=== PATIENT | female | born 1965 | race Caucasian/White ===

== ENCOUNTER 2020-08-12 13:50 | Outpatient (REF) | payer MEDICAID, SELFPAY ==
[2020-08-12 14:31] LABS: Basophils Percent Auto 1.2 % (0-2); Eosinophils Absolute Auto 0.3 X10*3/uL (0.0-0.4); Eosinophils Percent Auto 8.8 % (0-4); Hematocrit 34.2 % (37-47); Imm Gran Abs Auto 0.02 X10*3/uL (0.00-0.03); Imm Gran Pct Auto 0.6 % (0.0-0.4); Lymphocytes Absolute Auto 0.6 X10*3/uL (1.2-4.9); Lymphocytes Percent Auto 17.6 % (20-40); MANUAL DIFF FLAG SCAN; Mean Corpuscular HGB Conc 32.2 g/dl (31.0-35.0); Mean Corpuscular Hemoglobin 32.9 pg (27.0-33.0); Mean Corpuscular Volume 102.4 fL (80-98); Mean Platelet Volume 10.7 fL (9.4-12.3); Monocytes Absolute Auto 0.3 X10*3/uL (0.1-1.2); Monocytes Percent Auto 8.8 % (2-11); Neutrophils Absolute Auto 2.2 X10*3/uL (2.0-8.3); Red Blood Count 3.34 X10*6/uL (4.20-5.50); Red Cell Distribution Width 15.9 % (11.0-16.0); SCAN SMEAR FLAG 1; White Blood Count 3.4 X10*3/uL (4.8-10.8)
[2020-08-12 14:34] LABS: Platelet Count 36 X10*3/uL (160-400)
[2020-08-12 14:41] LABS: INTERNATIONAL NORM RATIO 1.3 (0.9-1.1)
[2020-08-12 15:04] LABS: Alanine Aminotransferase 25 U/L (0-31); Albumin Level 2.9 g/dL (3.5-5.0); Alkaline Phosphatase 70 U/L (39-117); Anion Gap 10 (12-20); Aspartate Amino Transferase 22 U/L (5-31); Bilirubin Direct 0.7 mg/dL (0.0-0.5); Bilirubin Total 1.7 mg/dL (0.0-1.0); Blood Urea Nitrogen 21 mg/dL (9-16); Carbon Dioxide 24 mmol/L (22-29); Chloride 110 mmol/L (96-108); Estimated Glomerular Filt Rate 48; Glucose Random 118 mg/dL (60-115); Potassium 4.7 mmol/l (3.3-5.1); Sodium 139 mmol/L (135-145)
[2020-08-12 15:14] LABS: SLIDE REVIEW VERIFIED
[2020-08-12 15:18] LABS: Ammonia 66 umol/L (13-55)
[2020-12-31 11:28] LABS: HCV Log PCR <1.18 NOT DETECTED; HepC Viral Load <15 NOT DETECTED
== END 2020-08-12 13:51 | disposition home or self-care (01) ==
LOC: HO.LAB 13:50
PROVIDERS: PCP Family Medicine; Visit Provider Internal Medicine
DX: B18.2 Chronic viral hepatitis C (principal); K74.69 Other cirrhosis of liver; R18.8 Other ascites; K72.90 Hepatic failure, unspecified without coma
CPT/HCPCS: 36415; 80051; 80076; 82140; 82565; 82947; 84520; 85025; 85610; 87522

== ENCOUNTER → 2020-08-18 13:41 | Outpatient (BNVA) | payer MEDICAID, SELFPAY | PROVIDERS: PCP Family Medicine; Referring Provider Family Medicine; Visit Provider Nurse Practitioner Gerontology | DX: E11.65 Type 2 diabetes mellitus with hyperglycemia (principal); E11.22 Type 2 diabetes mellitus with diabetic chronic kidney disease; I12.9 Hypertensive chronic kidney disease with stage 1 through stage 4 chronic kidney disease, or unspecified chronic kidney disease; N18.30 Chronic kidney disease, stage 3 unspecified; E78.5 Hyperlipidemia, unspecified; Z79.4 Long term (current) use of insulin | CPT/HCPCS: 82947; 99213 ==

== ENCOUNTER → 2020-09-04 14:30 | Outpatient (BNVA) | payer MEDICAID, SELFPAY | PROVIDERS: PCP Family Medicine; Referring Provider Family Medicine; Visit Provider Dietitian, Registered | DX: Z76.89 Persons encountering health services in other specified circumstances (principal) ==

== ENCOUNTER 2020-09-10 16:10 | Outpatient (REF) | payer MEDICAID, SELFPAY ==
[2020-09-10 17:13] LABS: Eosinophils Absolute Auto 0.2 X10*3/uL (0.0-0.4); Hematocrit 30.3 % (37-47); Hemoglobin 9.9 g/dl (12.0-16.0); Imm Gran Abs Auto 0.01 X10*3/uL (0.00-0.03); Imm Gran Pct Auto 0.3 % (0.0-0.4); Lymphocytes Absolute Auto 0.5 X10*3/uL (1.2-4.9); Lymphocytes Percent Auto 16.9 % (20-40); MANUAL DIFF FLAG SCAN; Mean Corpuscular HGB Conc 32.7 g/dl (31.0-35.0); Mean Platelet Volume 11.4 fL (9.4-12.3); Monocytes Absolute Auto 0.3 X10*3/uL (0.1-1.2); Neutrophils Absolute Auto 2.1 X10*3/uL (2.0-8.3); Neutrophils Percent Auto 66.8 % (45-73); Red Cell Distribution Width 15.4 % (11.0-16.0); SCAN SMEAR FLAG 1; White Blood Count 3.1 X10*3/uL (4.8-10.8)
[2020-09-10 17:27] LABS: Platelet Count 36 X10*3/uL (160-400)
[2020-09-10 17:38] LABS: Iron 228 mcg/dL (30-160); Percent Iron Saturation 92 % (15-50); Total Iron Binding Capacity 249 mcg/dL (228-428); Unsaturated Iron Binding 21 ug/dL
[2020-09-10 17:54] LABS: SLIDE REVIEW VERIFIED
[2020-09-10 18:00] LABS: Ferritin 135 ng/mL (10-250); TSH reflex Free T4 1.65 mIU/mL (0.32-4.0)
[2020-09-10 18:36] LABS: Folate 9.1 ng/mL (> or = 4.0); Vitamin B12 867 pg/mL (200-900)
== END 2020-09-10 16:11 | disposition home or self-care (01) ==
LOC: HO.LAB 16:10
PROVIDERS: PCP Family Medicine; Visit Provider Family Medicine
DX: D61.818 Other pancytopenia (principal)
CPT/HCPCS: 36415; 82607; 82728; 82746; 83540; 84443; 85025

== ENCOUNTER → 2020-09-29 14:15 | Outpatient (BNVA) | payer MEDICAID, SELFPAY | PROVIDERS: PCP Family Medicine; Visit Provider Nurse Practitioner Gerontology | DX: E11.65 Type 2 diabetes mellitus with hyperglycemia (principal); E11.22 Type 2 diabetes mellitus with diabetic chronic kidney disease; I12.9 Hypertensive chronic kidney disease with stage 1 through stage 4 chronic kidney disease, or unspecified chronic kidney disease; N18.30 Chronic kidney disease, stage 3 unspecified; Z79.4 Long term (current) use of insulin; E78.5 Hyperlipidemia, unspecified | CPT/HCPCS: 82947; 99212 ==

== ENCOUNTER → 2020-10-16 13:53 | Outpatient (BNVA) | payer MEDICAID, SELFPAY | PROVIDERS: PCP Family Medicine; Visit Provider Dietitian, Registered | DX: Z76.89 Persons encountering health services in other specified circumstances (principal) ==

== ENCOUNTER 2021-01-05 22:49 | Inpatient (IN) | payer MEDICAID, SELFPAY ==
--- NOTE | ~2021-01-05 | CT_ITS ---
EXAMINATION: CT HEAD WITHOUT CONTRAST CLINICAL INFORMATION: Low platelets, rule out intracranial hemorrhage COMPARISON: None TECHNIQUE: Contiguous axial imaging was performed from the skull base to vertex without intravenous administration of contrast. This CT examination was performed using dose optimization techniques as appropriate, variously including the following: *Automated exposure control *Adjustment of mA and/or kV according to patient size (this includes techniques or standardized protocols for targeted exams where dose is matched to indication/reason for exam; i.e. extremities or head) *Use of iterative reconstruction technique DLP: 629 mGy-cm FINDINGS: There is no evidence of acute intracranial hemorrhage or territorial infarction. No abnormal mass effect or midline shift is seen. [place] to white matter differentiation is well preserved. No extra-axial fluid collections are identified. The ventricles are normal in size. Region of hypoattenuation in the inferior right frontal lobe favors chronic infarct. Mild volume loss is noted. The osseous structures and soft tissues are normal. The mastoid air cells and visualized portions of the paranasal sinuses are well aerated. CT/CT head/brain wo con IMPRESSION: No acute intracranial hemorrhage. 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
--- NOTE | ~2021-01-05 | XR_ITS ---
EXAMINATION: XR CHEST CLINICAL INFORMATION: Weakness COMPARISON: 04/02/2020 TECHNIQUE: Frontal view of the chest was obtained. FINDINGS: The lungs are mildly hypoinflated. There is a small right pleural effusion which has increased from prior, with adjacent basilar opacity. Left lung appears clear. No evidence of pneumothorax or overt pulmonary edema. The cardiomediastinal contour is unremarkable. No acute osseous findings are seen. XR/XR chest 1V IMPRESSION: Increased small right pleural effusion with adjacent basilar opacity suggestive of atelectasis.
[2021-01-05 23:20] VITALS: BP 129/62; PULSE 18; RESP 63; TEMP 36.9; O2SAT 98; BMI 29.0
[2021-01-06] VITALS (11 sets, daily range): BP systolic 110–148; BP diastolic 52–76; PULSE 54–73; RESP 16–18; TEMP 36.3–37.1; O2SAT 96–100
--- NOTE | 2021-01-06 01:41 | ED_ITS ---
HPI - GI Bleed General Chief complaint: General Medical Stated complaint: rectal bleed Time Seen by Provider: 01/06/21 00:39 Source: patient and old records reviewed Mode of arrival: EMS Limitations: no limitations History of Present Illness HPI Narrative: 55 yo female with cirrhosis, CKD, DM, HPL, HTN here with inf lammed and bleeding hemorrhoids for 3 days, denies other complaints but notes that she needs help at home as she left rehab on 12/31 and her son was home and just left for the army MD complaint: blood on toilet paper (hemorrhoids) Onset (ago): day(s) (3) Pain Consistency: constant Severity: mild Relieving factors: none Exacerbating factors: bowel movement Context: liver disease and hemorrhoids Associated symptoms: denies other symptoms Treatments Prior to Arrival: none Related Data Home Medications Medication Instructions Recorded Confirmed cholecalciferol (vitamin D3) 50 2,000 unit PO DAILY cap 08/18/20 09/29/20 mcg (2,000 unit) capsule levothyroxine 50 mcg tablet 50 mcg PO DAILY 08/18/20 09/29/20 mirtazapine 7.5 mg tablet 7.5 mg PO BEDTIME 08/18/20 09/29/20 nadolol 20 mg tablet 20 mg PO DAILY tab 08/18/20 09/29/20 omeprazole 40 mg capsule,delayed 40 mg PO DAILY 08/18/20 09/29/20 release spironolactone 50 mg tablet 50 mg PO DAILY 08/18/20 09/29/20 trazodone 150 mg tablet 150 mg PO BEDTIME PRN 08/18/20 09/29/20 insulin glargine 100 unit/mL (3 42 unit SUBCUT QPM ml 09/29/20 09/29/20 mL) subcutaneous pen Previous Rx's Medication Instructions Recorded dulaglutide 0.75 mg/0.5 mL 0.75 mg SUBCUT QWEEK 28 Days #2 ml 09/29/20 subcutaneous pen injector insulin lispro 100 unit/mL See Rx Instructions SUBCUT QID #15 09/29/20 subcutaneous pen ml Allergies Allergy/AdvReac Type Severity Reaction Status Date / Time aspirin [ASPIRIN] Allergy Unknown NAUSEA/VOMI Verified 01/05/21 23:19 TING ibuprofen [IBUPROFEN] AdvReac Mild N/V Verified 01/05/21 23:19 povidone-iodine AdvReac Unknown RASH Verified 01/05/21 23:19 [Povidone-Iodine] Codeine Phosphate Allergy Unknown unknown Uncoded 09/29/20 14:48 Review of Systems Review of Systems: Constitutional : No Weight loss, No Fever, No Chills, No Fatigue, No Malaise ENT/Mouth : No sore throat, No Rhinorrhea Eyes: No Eye Pain, No Swelling, No Redness Cardiovascular : No Chest Pain, No SOB, No Dyspnea on Exertion, No Orthopnea, No Edema, No Palpitations Respiratory : No Cough, No Sputum, No Wheezing Gastrointestinal : No Nausea, No Vomiting, No Diarrhea, No Constipation, No abdominal Pain, No Hematochezia, No Melena, positive rectal pain from hemorrhoids Genitourinary : No Dysuria, No Urinary Frequency, No Hematuria, Musculoskeletal : No joint pain, No Myalgias, No Joint Swelling Skin : No Skin Lesions, No rash Neuro : No Weakness, No Numbness, No Dizziness, No Headache Psych : No Anxiety/Panic, No Depression Heme/Lymph: No Bruising, No Bleeding,No Lymphadenopathy Endocrine : No Polyuria, No Polydipsia All other systems reviewed and are negative [facility] Past Medical History Attestation statement: The following information was validated with the patient. Medical History Allergic rhinitis Anemia Asthma Chronic kidney disease, stage 3 unspecified Cirrhosis Depression due to dementia Diabetes type 2, uncontrolled Esophageal varices Essential hypertension Facial twitching GERD (gastroesophageal reflux disease) Heart murmur Hemorrhoids Hepatitis C Strum disease Hx of hypotension Hx of spontaneous bacterial peritonitis Hyperlipidemia LDL goal <100 Hypothyroidism (acquired) Intellectual disability Lower extremity edema Other ascites Pancytopenia Portal hypertension Recurrent pleural effusion on right Thrombocytopenia Type 2 diabetes mellitus with chronic kidney disease Venous insufficiency Vitamin D deficiency Surgical History Hx of esophageal varices Family History Family History Father No problems noted. Mother No problems noted. Social History Social History Household Members: Significant Other Smoking Status: Former smoker Advance Directives: No Physical Exam Vital Signs: Vital Signs: Last Vital Signs Temp 98.7 F 01/06/21 04:00 Pulse 63 01/06/21 04:00 Resp 16 01/06/21 04:00 BP 129/76 01/06/21 04:00 Pulse Ox 98 01/06/21 04:00 Body Mass Index 29.0 Appearance: Alert. Oriented X2. No acute distress. Eyes: Pupils equal, round and reactive to light. ENT: Pharynx normal. Neck: Normal inspection. Neck supple. CVS: Normal heart rate and rhythm. Pulses normal. Respiratory: No respiratory distress. Breath sounds normal. Abdomen: Soft and nontender. Rectal: 4 hemorrhoids noted - one is thrombosed and inflammed with scant bloody ooze Skin: Skin warm and dry. Normal skin color. Normal skin turgor. Extremities: pos 1 to 2+ pitting lower extremity edema. No calf ttp Neuro: Oriented X 2. No motor deficit. No sensory deficit. Speech is mumbled at times, slurring at times and seems intermittently confused Course Course Course Narrative: hx of pancytopenia due to cirrhosis in past, [place] [facility] [place], given lactulose for ammonia 65 [place] [facility] [place] AMS - ammonia 152 at that time was admitted, hx of noncompliance with lactulose discussion with partner - Mehrdad solano and confusion x 2 days, this is not her baseline with speech plan to admit for hepatic encephalopathy hospitalist notified 5am possible UTI , infection suspected at this time 458am, at this time lactic acid cultures and IV ceftriaxone ordered MDM - GI Bleed MDM Narrative Medical decision making narrative: 55 yo female with DM, CKD, HPL, HTN, cirrhosis here with irritated hemorrhoids states she needs more help at home since leaving rehab on 12/31 - denies any other complaints at this time, exam shows inflammed very very scant bloody ooze from hemorrhoid, denies bloody stools to me, will obtain basic labs, the patient's seems confused ammonia level ordered, will contact family Lab Data Result diagrams: 01/06/21 02:19 01/06/21 02:19 Labs: Lab Results 01/06/21 01/06/21 01/06/21 Range/Units 02:19 02:19 02:19 WBC 1.7 L (4.8-10.8) X10*3/uL RBC 3.32 L (4.20-5.50) X10*6/uL Hgb 10.8 L (12.0-16.0) g/dl Hct 33.0 L (37-47) % MCV 99.4 H (80-98) fL MCH 32.5 (27.0-33.0) pg MCHC 32.7 (31.0-35.0) g/dl RDW 15.0 (11.0-16.0) % Plt Count 25 L D (160-400) X10*3/uL MPV 11.0 (9.4-12.3) fL Immature Gran % (Auto) 0.6 H (0.0-0.4) % Neut % (Auto) 66.7 (45-73) % Lymph % (Auto) 23.0 (20-40) % [place] % (Auto) 6.7 (2-11) % Eos % (Auto) 2.4 (0-4) % Baso % (Auto) 0.6 (0-2) % Lymph # (Auto) 0.4 L (1.2-4.9) X10*3/uL [place] # (Auto) 0.1 (0.1-1.2) X10*3/uL Eos # (Auto) 0.0 (0.0-0.4) X10*3/uL Baso # (Auto) 0.0 (0.0-0.2) X10*3/uL Abs Immat Gran (auto) 0.01 (0.00-0.03) X10*3/uL Absolute Neuts (auto) 1.1 L (2.0-8.3) X10*3/uL Absolute Nucleated RBC 0.000 (0.0-0.012) X10*3/uL Nucleated RBC % (auto) 0.0 (0.0-0.2) /100WBC Smear Tech's Comments VERIFIED PT 14.9 H (10.8-13.0) SEC INR 1.3 H (0.9-1.1) APTT 36.7 (24.1-38.0) SEC Sodium 145 (135-145) mmol/L Potassium 3.7 (3.3-5.1) mmol/L Chloride 114 H (96-108) mmol/L Carbon Dioxide 26 (22-29) mmol/L Anion Gap 9 L (12-20) BUN 20 H (9-16) mg/dL Creatinine 1.07 (0.5-1.4) mg/dL Estim Creat Clear Calc 56.0 Estimated GFR 53 Random Glucose 214 H D (60-115) mg/dL Calcium 9.1 (8.4-10.2) mg/dL Magnesium 1.7 (1.6-2.6) mg/dL Total Bilirubin 1.1 H (0.0-1.0) mg/dL Direct Bilirubin 0.5 (0.0-0.5) mg/dL AST 18 (5-31) U/L ALT 25 (0-31) U/L Alkaline Phosphatase 50 D (39-117) U/L Ammonia (13-55) umol/L Total Protein 6.2 L (6.5-8.0) g/dL Albumin 3.4 L (3.5-5.0) g/dL Lipase (8-78) U/L Urine Color Urine Appearance Urine pH (5.0-8.0) Ur Specific [place] (1.005-1.025) Urine Protein (NEG-TRACE) MG/DL Urine Glucose (UA) (NEG) MG/DL Urine Ketones (NEG) MG/DL Urine Blood (NEG) Urine Nitrite (NEG) Ur Leukocyte Esterase (NEG) COVID-19 ([place]) (Negative) COVID-19 Clin Com 01/06/21 01/06/21 01/06/21 Range/Units 02:19 02:19 03:47 WBC (4.8-10.8) X10*3/uL RBC (4.20-5.50) X10*6/uL Hgb (12.0-16.0) g/dl Hct (37-47) % MCV (80-98) fL MCH (27.0-33.0) pg MCHC (31.0-35.0) g/dl RDW (11.0-16.0) % Plt Count (160-400) X10*3/uL MPV (9.4-12.3) fL Immature Gran % (Auto) (0.0-0.4) % Neut % (Auto) (45-73) % Lymph % (Auto) (20-40) % [place] % (Auto) (2-11) % Eos % (Auto) (0-4) % Baso % (Auto) (0-2) % Lymph # (Auto) (1.2-4.9) X10*3/uL [place] # (Auto) (0.1-1.2) X10*3/uL Eos # (Auto) (0.0-0.4) X10*3/uL Baso # (Auto) (0.0-0.2) X10*3/uL Abs Immat Gran (auto) (0.00-0.03) X10*3/uL Absolute Neuts (auto) (2.0-8.3) X10*3/uL Absolute Nucleated RBC (0.0-0.012) X10*3/uL Nucleated RBC % (auto) (0.0-0.2) /100WBC Smear Tech's Comments PT (10.8-13.0) SEC INR (0.9-1.1) APTT (24.1-38.0) SEC Sodium (135-145) mmol/L Potassium (3.3-5.1) mmol/L Chloride (96-108) mmol/L Carbon Dioxide (22-29) mmol/L Anion Gap (12-20) BUN (9-16) mg/dL Creatinine (0.5-1.4) mg/dL Estim Creat Clear Calc Estimated GFR Random Glucose (60-115) mg/dL Calcium (8.4-10.2) mg/dL Magnesium (1.6-2.6) mg/dL Total Bilirubin (0.0-1.0) mg/dL Direct Bilirubin (0.0-0.5) mg/dL AST (5-31) U/L ALT (0-31) U/L Alkaline Phosphatase (39-117) U/L Ammonia 65 H (13-55) umol/L Total Protein (6.5-8.0) g/dL Albumin (3.5-5.0) g/dL Lipase 57 (8-78) U/L Urine Color Urine Appearance Urine pH (5.0-8.0) Ur Specific [place] (1.005-1.025) Urine Protein (NEG-TRACE) MG/DL Urine Glucose (UA) (NEG) MG/DL Urine Ketones (NEG) MG/DL Urine Blood (NEG) Urine Nitrite (NEG) Ur Leukocyte Esterase (NEG) COVID-19 ([place]) Negative (Negative) COVID-19 Clin Com See Note 01/06/21 Range/Units 04:42 WBC (4.8-10.8) X10*3/uL RBC (4.20-5.50) X10*6/uL Hgb (12.0-16.0) g/dl Hct (37-47) % MCV (80-98) fL MCH (27.0-33.0) pg MCHC (31.0-35.0) g/dl RDW (11.0-16.0) % Plt Count (160-400) X10*3/uL MPV (9.4-12.3) fL Immature Gran % (Auto) (0.0-0.4) % Neut % (Auto) (45-73) % Lymph % (Auto) (20-40) % [place] % (Auto) (2-11) % Eos % (Auto) (0-4) % Baso % (Auto) (0-2) % Lymph # (Auto) (1.2-4.9) X10*3/uL [place] # (Auto) (0.1-1.2) X10*3/uL Eos # (Auto) (0.0-0.4) X10*3/uL Baso # (Auto) (0.0-0.2) X10*3/uL Abs Immat Gran (auto) (0.00-0.03) X10*3/uL Absolute Neuts (auto) (2.0-8.3) X10*3/uL Absolute Nucleated RBC (0.0-0.012) X10*3/uL Nucleated RBC % (auto) (0.0-0.2) /100WBC Smear Tech's Comments PT (10.8-13.0) SEC INR (0.9-1.1) APTT (24.1-38.0) SEC Sodium (135-145) mmol/L Potassium (3.3-5.1) mmol/L Chloride (96-108) mmol/L Carbon Dioxide (22-29) mmol/L Anion Gap (12-20) BUN (9-16) mg/dL Creatinine (0.5-1.4) mg/dL Estim Creat Clear Calc Estimated GFR Random Glucose (60-115) mg/dL Calcium (8.4-10.2) mg/dL Magnesium (1.6-2.6) mg/dL Total Bilirubin (0.0-1.0) mg/dL Direct Bilirubin (0.0-0.5) mg/dL AST (5-31) U/L ALT (0-31) U/L Alkaline Phosphatase (39-117) U/L Ammonia (13-55) umol/L Total Protein (6.5-8.0) g/dL Albumin (3.5-5.0) g/dL Lipase (8-78) U/L Urine Color YELLOW Urine Appearance CLOUDY Urine pH 6.0 (5.0-8.0) Ur Specific [place] >= 1.030 H (1.005-1.025) Urine Protein NEG (NEG-TRACE) MG/DL Urine Glucose (UA) 100 H (NEG) MG/DL Urine Ketones NEG (NEG) MG/DL Urine Blood TRACE (NEG) Urine Nitrite POS H (NEG) Ur Leukocyte Esterase NEG (NEG) COVID-19 ([place]) (Negative) COVID-19 Clin Com ECG Data Attestation: I personally reviewed and interpreted this ECG as follows: ECG interpretation date: 01/06/21 ECG interpretation time: 04:41 Interpretation: Rate:62 Rhythm: NSR [place]: normal Normal P waves. Normal ADRIEN. Normal QRS complex. ST T wave : nonspecific, no SWETA qTC: normal prior studies: artifact noted, no ischemia The study has been interpreted contemporaneously by me. . Discharge Plan Discharge Clinical Impression: Hemorrhoids, Acute hepatic encephalopathy, Pancytopenia, UTI (urinary tract infection) Patient Disposition: Admitted As Inpatient
[2021-01-06 02:27] LABS: Basophils Percent Auto 0.6 % (0-2); Eosinophils Percent Auto 2.4 % (0-4); Hemoglobin 10.8 g/dl (12.0-16.0); Imm Gran Abs Auto 0.01 X10*3/uL (0.00-0.03); Imm Gran Pct Auto 0.6 % (0.0-0.4); Lymphocytes Absolute Auto 0.4 X10*3/uL (1.2-4.9); MANUAL DIFF FLAG SCAN; Mean Corpuscular HGB Conc 32.7 g/dl (31.0-35.0); Mean Corpuscular Hemoglobin 32.5 pg (27.0-33.0); Mean Corpuscular Volume 99.4 fL (80-98); Monocytes Absolute Auto 0.1 X10*3/uL (0.1-1.2); Monocytes Percent Auto 6.7 % (2-11); Neutrophils Absolute Auto 1.1 X10*3/uL (2.0-8.3); Neutrophils Percent Auto 66.7 % (45-73); Red Blood Count 3.32 X10*6/uL (4.20-5.50); SCAN SMEAR FLAG 1
[2021-01-06 02:32] LABS: Platelet Count 25 X10*3/uL (160-400); White Blood Count 1.7 X10*3/uL (4.8-10.8)
[2021-01-06 02:37] LABS: INTERNATIONAL NORM RATIO 1.3 (0.9-1.1); Prothrombin Time 14.9 SEC (10.8-13.0)
[2021-01-06 02:40] LABS: Partial Thromboplastin Time 36.7 SEC (24.1-38.0)
--- NOTE | 2021-01-06 02:47 | PC.NURSE ---
RN confirmed with mixer blender that hydrocortisone 2.5% was not available in the pyxis or via a global search. MD Carpenter aware that medication administration will need to wait until pharmacy's arrival in the Am.
[2021-01-06 02:52] LABS: SLIDE REVIEW VERIFIED
[2021-01-06 02:54] LABS: Lipase 57 U/L (8-78)
[2021-01-06 02:55] LABS: Alanine Aminotransferase 25 U/L (0-31); Albumin Level 3.4 g/dL (3.5-5.0); Alkaline Phosphatase 50 U/L (39-117); Aspartate Amino Transferase 18 U/L (5-31); Bilirubin Direct 0.5 mg/dL (0.0-0.5); Bilirubin Total 1.1 mg/dL (0.0-1.0); Blood Urea Nitrogen 20 mg/dL (9-16); Calcium 9.1 mg/dL (8.4-10.2); Estimated Glomerular Filt Rate 53; Glucose Random 214 mg/dL (60-115); Magnesium 1.7 mg/dL (1.6-2.6); Total Protein 6.2 g/dL (6.5-8.0)
[2021-01-06 02:58] LABS: Ammonia 65 umol/L (13-55)
[2021-01-06 03:03] LABS: Anion Gap 9 (12-20); Carbon Dioxide 26 mmol/L (22-29); Chloride 114 mmol/L (96-108); Potassium 3.7 mmol/L (3.3-5.1); Sodium 145 mmol/L (135-145)
--- NOTE | 2021-01-06 03:39 | PC.NURSE ---
Report taken from Yelena, nadia RN resuming care. Pt found in bed, with sanitation technician at bedside. Pt requesting to be changed prior to CT. Pt states I'm peeing now, I need a minute. Lactulose pending from 0300 to be administered. Call bolton within reach.
[2021-01-06] MEDS: Lactulose 20 GM/30 ML SOLUTION PO ×4 (03:44→21:32)
--- NOTE | 2021-01-06 03:56 | PC.NURSE ---
Pt medicated per DEC. Covid swab obtained and sent. Pt provided with yan care and a bed change. Off to CT on hospital bed.
--- NOTE | 2021-01-06 04:11 | ECG_ITS ---
Test Reason : AMS Blood Pressure : / mmHG Vent. Rate : 062 BPM Atrial Rate : 062 BPM P-R Int : 124 ms QRS Dur : 090 ms QT Int : 436 ms P-R-T Axes : 038 005 036 degrees QTc Int : 442 ms Normal sinus rhythm Nonspecific ST abnormality Abnormal ECG When compared with ECG of 02-APR-2020 18:55, Nonspecific T wave abnormality now evident in Inferior leads Referred By: Shanika Carpenter Electronically Signed By:Severino Cruz
[2021-01-06 04:14] LABS: COVID-19 Test Negative (Negative)
--- NOTE | 2021-01-06 04:41 | PC.NURSE ---
This RN and sterile processing tech at bedside to obtain EKG and urine sample via straight cath. Urine obtained and sent, EKG documented. Pt repositioned into POC, provided with warm blankets per request. Continue to monitor.
--- NOTE | 2021-01-06 04:49 | PC.NURSE ---
MD calling SO, per SO, garbled speech not normal for pt and started 2 days ago. Pt noncompliant with Lactulose @ home, states I just take sips. Plan for admission at this time.
[2021-01-06 04:54] LABS: Glucose Urine UA 100 MG/DL (NEG); Leukocyte Esterase Urine NEG (NEG); Nitrite Urine POS (NEG); Specific Gravity - Urine >= 1.030 (1.005-1.025); UACC Culture Trigger YES; Urine Blood TRACE (NEG); Urine Ketones NEG (NEG); Urine Protein NEG (NEG-TRACE)
[2021-01-06 04:55] LABS: Appearance Urine CLOUDY; Color Urine YELLOW
--- NOTE | 2021-01-06 05:06 | PC.NURSE ---
audiology technician at bedside to obtain BCX and lactic. Plan to medicate with Rocephin once labs obtained.
[2021-01-06 05:10] LABS: Bacteria Urine 4+ /LPF; RBC Urine 0-2 /HPF (0); Squamous Epithelial Cell Urine 4+ /LPF
[2021-01-06] MEDS: cefTRIAXone sodium 1 GM in 0.9 % Sodium Chloride 50 ML IV (05:21)
--- NOTE | 2021-01-06 05:26 | PC.NURSE ---
IV established, Rocephin infusing. VSS, call bolton within reach, continue to monitor.
[2021-01-06 05:42] LABS: Lactic Acid 1.2 mmol/L (0.5-2.0)
--- NOTE | 2021-01-06 07:52 | PC.NURSE ---
pt sleeping at shift change. antibiotics are complete . IV access remains patent. awaiting admission
--- NOTE | 2021-01-06 08:40 | PC.NURSE ---
hospitalist at bedside for admission
--- NOTE | 2021-01-06 10:41 | PC.NURSE ---
UP TO BEDSIDE COMMODE, MORE ALERT AND ORIENTED
--- NOTE | 2021-01-06 11:12 | PC.NURSE ---
Update to Mehrdad Andrade [phone] at patient's request. 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 Pt is alert, up to commode with assist for urine only. Awaits transfer to floor.
--- NOTE | 2021-01-06 11:15 | PC.NURSE ---
Lionel RN on IMC unable to take report. Is in ICU. Will await return call.
[2021-01-06 13:15] LABS: Glucose, Whole Blood 190 mg/dL (60-115)
--- NOTE | 2021-01-06 14:46 | P.HPHOSP_ITS ---
History of Present Illness Date of Service: 01/06/21 Chief Complaint: lower gi bleed patient is a poor historian 55 y o f with known h/o cirrhosis presented lower GI bleed patient reported she was having bleeding from her hemorrhoids, patient was also found to be confused, , patient was reporting weakness Denies any fever chills, in the ER found to have ammonia level was high, leukopenia and thrombocytopenia, inpatient admission was requested for hepatic encephalopathy Review of Systems Constitutional: Constitutional: Reports fatigue and Reports weakness Cardiovascular: Cardiovascular: Denies dyspnea Respiratory: Respiratory: Denies dyspnea Gastrointestinal: Gastrointestinal: Denies vomiting Musculoskeletal: Musculoskeletal: Reports arthralgias Neurologic: Denies focal weakness and Reports weakness Endocrine: Endocrine: Reports fatigue [facility] Medical History Allergic rhinitis Anemia Asthma Chronic kidney disease, stage 3 unspecified Cirrhosis Depression due to dementia Diabetes type 2, uncontrolled Esophageal varices Essential hypertension Facial twitching GERD (gastroesophageal reflux disease) Heart murmur Hemorrhoids Hepatitis C [place] disease Hx of hypotension Hx of spontaneous bacterial peritonitis Hyperlipidemia LDL goal <100 Hypothyroidism (acquired) Intellectual disability Lower extremity edema Other ascites Pancytopenia Portal hypertension Recurrent pleural effusion on right Thrombocytopenia Type 2 diabetes mellitus with chronic kidney disease Venous insufficiency Vitamin D deficiency Family History Father No problems noted. Mother No problems noted. Surgical History Hx of esophageal varices Social History Household Members: Significant Other Housing: House Do you presently have visiting nurse or other home services: Yes Alcohol intake: unknown Smoking Status: Former smoker Smoked in Last 30 Days: No Use of substances other than those prescribed or required for medical reasons: No Currently Displaying Signs/Symptoms of Drug Intoxication Withdrawal: No Have you been hit, kicked, punched, or otherwise hurt by someone within the past year? If so, by whom?: No Do you feel safe in your current relationship?: Yes Is there a partner from a previous relationship who is making you feel unsafe now?: No Advance Directives: No Do you have thoughts of harming others: None Do you have a plan to hurt others: No Plan Recently lost weight without trying: No service: No Current occupational status: disabled Meds Allergies Allergy/AdvReac Type Severity Reaction Status Date / Time aspirin [ASPIRIN] Allergy Unknown NAUSEA/VOMI Verified 01/05/21 23:19 TING ibuprofen [IBUPROFEN] AdvReac Mild N/V Verified 01/05/21 23:19 povidone-iodine AdvReac Unknown RASH Verified 01/05/21 23:19 [Povidone-Iodine] Codeine Phosphate Allergy Unknown unknown Uncoded 09/29/20 14:48 Active Medications: Current Medications Generic Name Dose Route Start Last Admin Trade Name Freq PRN Reason Stop Dose Admin Insulin Glargine 42 unit 01/06/21 21:00 Insulin Glargine,Hum.Rec.Anlog 100 Unit/Ml 10 Ml Vial SUBCUT BEDTIME [facility] Lactulose 20 gm 01/06/21 13:08 01/06/21 14:00 Lactulose 20 Gm/30 Ml Solution PO 20 gm QID [facility] Administration Levothyroxine Sodium 50 mcg 01/07/21 09:00 Levothyroxine Sodium 50 Mcg Tablet PO DAILY [facility] Mirtazapine 7.5 mg 01/06/21 21:00 Mirtazapine 7.5 Mg Tablet PO BEDTIME [facility] Nadolol 20 mg 01/07/21 09:00 Nadolol 20 Mg Tablet PO DAILY [facility] Protocol Omeprazole 40 mg 01/07/21 06:30 Omeprazole 40 Mg Capsule. PO DAILY@0630 [facility] Pharmacy Consult 1 each 01/06/21 04:11 Consult Rx Perform Med Rec MISCELLANE ONCE PRN Consult order Sodium Chloride 3 ml 01/06/21 16:00 0.9 % Sodium Chloride Flush 3 Ml Syringe IVFLUSH QSHIFT [facility] Spironolactone 50 mg 01/07/21 09:00 Spironolactone 25 Mg Tablet PO DAILY [facility] Protocol Home Medications Medication Instructions Recorded Confirmed Last Taken Type cholecalciferol (vitamin D3) 50 2,000 unit PO DAILY cap 08/18/20 01/06/21 Unknown History mcg (2,000 unit) capsule levothyroxine 50 mcg tablet 50 mcg PO DAILY 08/18/20 01/06/21 Unknown History mirtazapine 7.5 mg tablet 7.5 mg PO BEDTIME 08/18/20 01/06/21 Unknown History nadolol 20 mg tablet 20 mg PO DAILY tab 08/18/20 01/06/21 Unknown History omeprazole 40 mg capsule,delayed 40 mg PO DAILY 08/18/20 01/06/21 Unknown History release spironolactone 50 mg tablet 50 mg PO DAILY 08/18/20 01/06/21 Unknown History trazodone 150 mg tablet 150 mg PO BEDTIME PRN 08/18/20 01/06/21 Unknown History insulin glargine 100 unit/mL (3 42 unit SUBCUT QPM ml 09/29/20 01/06/21 Unknown History mL) subcutaneous pen Physical Exam Vital Signs and Narrative: Vital Signs: Last Vital Signs Temp 98 F 01/06/21 13:11 Pulse 65 01/06/21 14:00 Resp 17 01/06/21 13:11 BP 123/62 01/06/21 13:11 Pulse Ox 99 01/06/21 13:11 Body Mass Index 29.0 Const: General: lethargic Orientation/consciousness: lethargic Neck: Yes normal visual inspection Chest: Chest palpation & inspection: normal inspection of the chest Resp: Effort & Inspection: normal respiratory effort Cardio: Jugular venous distension: no JVD GI: Inspection: Yes normal to inspection Skin: General skin exam: no rashes or lesions noted Neuro: Motor exam (neuro): 5/5 motor strength present throughout Results Labs CBC and Chem 7: 01/07/21 05:20 01/07/21 05:20 Labs: Laboratory Results - last 24 hr 01/06/21 01/06/21 01/06/21 02:19 02:19 02:19 MCV 99.4 H MCH 32.5 MCHC 32.7 RDW 15.0 Plt Count 25 L D MPV 11.0 Immature Gran % (Auto) 0.6 H Neut % (Auto) 66.7 Lymph % (Auto) 23.0 [place] % (Auto) 6.7 Eos % (Auto) 2.4 Baso % (Auto) 0.6 Lymph # (Auto) 0.4 L [place] # (Auto) 0.1 Eos # (Auto) 0.0 Baso # (Auto) 0.0 Abs Immat Gran (auto) 0.01 Absolute Neuts (auto) 1.1 L Absolute Nucleated RBC 0.000 Nucleated RBC % (auto) 0.0 Smear Tech's Comments VERIFIED Smear Path Review SEE NOTE PT 14.9 H INR 1.3 H APTT 36.7 Anion Gap 9 L Estim Creat Clear Calc 56.0 Estimated GFR 53 POC Glucose Random Glucose 214 H D Lactic Acid Calcium 9.1 Magnesium 1.7 Total Bilirubin 1.1 H Direct Bilirubin 0.5 AST 18 ALT 25 Alkaline Phosphatase 50 D Ammonia Total Protein 6.2 L Albumin 3.4 L Lipase Urine Color Urine Appearance Urine pH Ur Specific [place] Urine Protein Urine Glucose (UA) Urine Ketones Urine Blood Urine Nitrite Ur Leukocyte Esterase Urine RBC Urine WBC Ur Squamous Epith Cells Urine Bacteria COVID-19 ([facility]) COVID-19 Clin Com 01/06/21 01/06/21 01/06/21 02:19 02:19 03:47 MCV MCH MCHC RDW Plt Count MPV Immature Gran % (Auto) Neut % (Auto) Lymph % (Auto) [place] % (Auto) Eos % (Auto) Baso % (Auto) Lymph # (Auto) [place] # (Auto) Eos # (Auto) Baso # (Auto) Abs Immat Gran (auto) Absolute Neuts (auto) Absolute Nucleated RBC Nucleated RBC % (auto) Smear Tech's Comments Smear Path Review PT INR APTT Anion Gap Estim Creat Clear Calc Estimated GFR POC Glucose Random Glucose Lactic Acid Calcium Magnesium Total Bilirubin Direct Bilirubin AST ALT Alkaline Phosphatase Ammonia 65 H Total Protein Albumin Lipase 57 Urine Color Urine Appearance Urine pH Ur Specific [place] Urine Protein Urine Glucose (UA) Urine Ketones Urine Blood Urine Nitrite Ur Leukocyte Esterase Urine RBC Urine WBC Ur Squamous Epith Cells Urine Bacteria COVID-19 ([place]) Negative COVID-19 Clin Com See Note 01/06/21 01/06/21 01/06/21 04:42 05:18 13:11 MCV MCH MCHC RDW Plt Count MPV Immature Gran % (Auto) Neut % (Auto) Lymph % (Auto) [place] % (Auto) Eos % (Auto) Baso % (Auto) Lymph # (Auto) [place] # (Auto) Eos # (Auto) Baso # (Auto) Abs Immat Gran (auto) Absolute Neuts (auto) Absolute Nucleated RBC Nucleated RBC % (auto) Smear Tech's Comments Smear Path Review PT INR APTT Anion Gap Estim Creat Clear Calc Estimated GFR POC Glucose 190 H Random Glucose Lactic Acid 1.2 Calcium Magnesium Total Bilirubin Direct Bilirubin AST ALT Alkaline Phosphatase Ammonia Total Protein Albumin Lipase Urine Color YELLOW Urine Appearance CLOUDY Urine pH 6.0 Ur Specific [place] >= 1.030 H Urine Protein NEG Urine Glucose (UA) 100 H Urine Ketones NEG Urine Blood TRACE Urine Nitrite POS H Ur Leukocyte Esterase NEG Urine RBC 0-2 Urine WBC 1-4 Ur Squamous Epith Cells 4+ Urine Bacteria 4+ COVID-19 ([facility]) COVID-19 Clin Com Imaging Radiologist's Impressions: Impressions Head CT 01/06/21 02:55 IMPRESSION: No acute intracranial hemorrhage. 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 Chest X-Ray 01/06/21 04:11 IMPRESSION: Increased small right pleural effusion with adjacent basilar opacity suggestive of atelectasis. Assessment and Plan (1) Acute hepatic encephalopathy: Status: Acute (2) Hemorrhoids: Qualifiers: Hemorrhoid type: unspecified Qualified Code(s): K64.9 - Unspecified hemorrhoids Status: Acute (3) Pancytopenia: Status: Acute (4) Chronic kidney disease, stage 3 unspecified: Status: Acute 55-year-old female with known history of cirrhosis presented with weakness and confusion found to have elevated ammonia, patient was also reporting lower GI bleed likely from hemorrhoids Hepatics encephalopathy with underlying cirrhosis will start on lactulose monitor mental status avoid sedatives continue supportive care GI consult Dr. Rodriguez lower GI bleed patient has known hemorrhoids monitor H&H Cirrhosis continue nadolol and Aldactone hypothyroidism continue levothyroxine Diabetes mellitus continue Lantus and sliding scale insulin monitor blood glucose pancytopenia likely secondary to underlying liver disease platelet count around 30 monitor CBC DVT prophylaxis Venodyne given significant thrombocytopenia
[2021-01-06] MEDS: 0.9 % Sodium Chloride Flush 3 ML SYRINGE IVFLUSH ×2 (16:10→21:36)
[2021-01-06 20:56] LABS: Glucose, Whole Blood 414 mg/dL (60-115)
[2021-01-06] MEDS: Mirtazapine 7.5 MG TABLET PO (21:32)
[2021-01-06] MEDS: Insulin Lispro 100 UNIT/ML 3 ML VIAL 10 UNIT SUBCUT (21:33)
[2021-01-06] MEDS: Insulin Glargine,Hum.rec.anlog 100 UNIT/ML 10 ML VIAL 42 UNIT SUBCUT (21:33)
[2021-01-06] MEDS: Insulin Lispro 100 UNIT/ML 3 ML VIAL SUBCUT (21:33)
[2021-01-07] VITALS (8 sets, daily range): BP systolic 98–139; BP diastolic 55–62; PULSE 63–73; RESP 17–19; TEMP 36.1–37.1; O2SAT 94–99
[2021-01-07] MEDS: Omeprazole 40 MG CAPSULE.DR PO (06:10)
[2021-01-07 06:25] LABS: Hemoglobin 9.3 g/dl (12.0-16.0); Mean Corpuscular HGB Conc 33.2 g/dl (31.0-35.0); Mean Corpuscular Hemoglobin 32.9 pg (27.0-33.0); Mean Corpuscular Volume 98.9 fL (80-98); Mean Platelet Volume 11.5 fL (9.4-12.3); Red Blood Count 2.83 X10*6/uL (4.20-5.50); Red Cell Distribution Width 14.4 % (11.0-16.0)
[2021-01-07 06:43] LABS: Platelet Count 21 X10*3/uL (160-400); White Blood Count 1.8 X10*3/uL (4.8-10.8)
[2021-01-07 06:53] LABS: Anion Gap 7 (12-20); Blood Urea Nitrogen 19 mg/dL (9-16); Calcium 8.2 mg/dL (8.4-10.2); Carbon Dioxide 26 mmol/L (22-29); Chloride 112 mmol/L (96-108); Creatinine Clr Calc Pharmacy 70.5; Estimated Glomerular Filt Rate > 60; Glucose Random 142 mg/dL (60-115); Potassium 3.7 mmol/L (3.3-5.1); Sodium 141 mmol/L (135-145)
[2021-01-07 07:12] LABS: Glucose, Whole Blood 119 mg/dL (60-115)
[2021-01-07] MEDS: Lactulose 20 GM/30 ML SOLUTION PO ×2 (08:52→17:46)
[2021-01-07] MEDS: Spironolactone 25 MG TABLET 50 MG PO (08:53)
[2021-01-07] MEDS: Levothyroxine Sodium 50 MCG TABLET PO (08:54)
[2021-01-07] MEDS: nadoloL 20 MG TABLET PO (08:55)
[2021-01-07] MEDS: 0.9 % Sodium Chloride Flush 3 ML SYRINGE IVFLUSH ×3 (08:56→22:02)
[2021-01-07 09:36] LABS: Ammonia 37 umol/L (13-55)
--- NOTE | 2021-01-07 09:44 | MHC.CM.PN ---
Patient here with Hepatic Encephalopathy, Dementia and Intellectual Disability; CM spoke with HCP/Significant Other/Mehrdad. Patient lives in a house with Mehrdad for 27 years and she has a cane, walker and bathroom equipment to assist her. Mehrdad and his Daughter from a previous marriage/Gem are both HCP agents. The goal for dc is to return home with VNA (possibly with Hospice) and CM has initiated and will follow for dc planning. Patient had been at [facility] from 11/04/20-12/26/20, but ended up leaving there AMA.PCP is from [facility]- Dr. Root.
[2021-01-07 11:32] LABS: Glucose, Whole Blood 169 mg/dL (60-115)
[2021-01-07] MEDS: Insulin Lispro 100 UNIT/ML 3 ML VIAL SUBCUT ×3 (11:59→22:01)
--- NOTE | 2021-01-07 12:59 | HO.PM.IMPN ---
Subjective Subjective Date of Service: 01/07/21 Interval History: patient seen and examined at bedside patient still reporting some bleeding from hemorrhoids Constitutional Constitutional: Reports fatigue and Reports weakness Cardiovascular Cardiovascular: Denies dyspnea Respiratory Respiratory: Denies dyspnea Gastrointestinal Gastrointestinal: Denies vomiting Musculoskeletal Musculoskeletal: Reports arthralgias Neurologic Neurologic: Denies focal weakness and Reports weakness Endocrine Endocrine: Reports fatigue Physical Exam Vital Signs: Vital Signs: Last Vital Signs Temp 97.7 F 01/07/21 12:01 Pulse 66 01/07/21 12:01 Resp 18 01/07/21 12:01 BP 139/62 01/07/21 12:01 Pulse Ox 99 01/07/21 12:01 Body Mass Index 29.0 Const: General: lethargic Orientation/consciousness: lethargic Neck: Neck: Yes normal visual inspection Chest: Chest palpation & inspection: normal inspection of the chest Resp: Effort & Inspection: normal respiratory effort Cardio: Jugular venous distension: no JVD GI: Inspection: Yes normal to inspection Skin: General skin exam: no rashes or lesions noted Neuro: Motor exam (neuro): 5/5 motor strength present throughout Objective Data Current Medications Generic Name Dose Route Start Last Admin Trade Name Freq PRN Reason Stop Dose Admin Insulin Glargine 42 unit 01/06/21 21:00 01/06/21 21:33 Insulin Glargine,Hum.Rec.Anlog 100 Unit/Ml 10 Ml Vial SUBCUT 42 unit BEDTIME [facility] Administration Insulin Human Lispro 0 unit 01/06/21 21:00 01/07/21 11:59 Insulin Lispro 100 Unit/Ml 3 Ml Vial SUBCUT 2 unit QIDACHS [facility] Administration Protocol Lactulose 20 gm 01/06/21 13:08 01/07/21 08:52 Lactulose 20 Gm/30 Ml Solution PO 20 gm QID [facility] Administration Levothyroxine Sodium 50 mcg 01/07/21 09:00 01/07/21 08:54 Levothyroxine Sodium 50 Mcg Tablet PO 50 mcg DAILY [facility] Administration Mirtazapine 7.5 mg 01/06/21 21:00 01/06/21 21:32 Mirtazapine 7.5 Mg Tablet PO 7.5 mg BEDTIME [facility] Administration Nadolol 20 mg 01/07/21 09:00 01/07/21 08:55 Nadolol 20 Mg Tablet PO 20 mg DAILY [facility] Administration Protocol Omeprazole 40 mg 01/07/21 06:30 01/07/21 06:10 Omeprazole 40 Mg Capsule. PO 40 mg DAILY@0630 [facility] Administration Pharmacy Consult 1 each 01/06/21 04:11 Consult Rx Perform Med Rec MISCELLANE ONCE PRN Consult order Sodium Chloride 3 ml 01/06/21 16:00 01/07/21 08:56 0.9 % Sodium Chloride Flush 3 Ml Syringe IVFLUSH 3 ml QSHIFT [facility] Administration Spironolactone 50 mg 01/07/21 09:00 01/07/21 08:53 Spironolactone 25 Mg Tablet PO 50 mg DAILY [facility] Administration Protocol Labs CBC & Chem 7: 01/07/21 05:20 01/07/21 05:20 Microbiology Microbiology Results: Microbiology 01/06/21 05:18 Blood - Venous Blood Culture - Preliminary No growth after 24 hours. 01/06/21 05:18 Blood - Venous Blood Culture - Preliminary No growth after 24 hours. 01/06/21 04:39 Urine Catheterized - Romeo Catheter Urine Culture - Preliminary Gram negative erum Assessment and Plan (1) Acute hepatic encephalopathy: Status: Acute (2) Hemorrhoids: Status: Acute (3) Pancytopenia: Status: Acute (4) Chronic kidney disease, stage 3 unspecified: Status: Acute Assessment and Plan: 55-year-old female with known history of cirrhosis presented with weakness and confusion found to have elevated ammonia, patient was also reporting lower GI bleed likely from hemorrhoids Hepatics encephalopathy with underlying cirrhosis improving more awake and oriented today continue lactulose monitor mental status avoid sedatives continue supportive care GI consult Dr. Rodriguez lower GI bleed likely secondary to hemorrhoid improving continue supportive management H&H stable will anusol suppository given significant thrombocytopenia will transfuse 1 unit of platelets monitor H&H Cirrhosis continue nadolol and Aldactone hypothyroidism continue levothyroxine Diabetes mellitus continue Lantus and sliding scale insulin monitor blood glucose pancytopenia likely secondary to underlying liver diseas monitor CBC DVT prophylaxis Venodyne given significant thrombocytopenia
[2021-01-07 16:26] LABS: Glucose, Whole Blood 271 mg/dL (60-115)
[2021-01-07] MEDS: Hydrocortisone 2.5 % Rectal Cr 30 GM TUBE 1 APPL PR (17:44)
[2021-01-07 20:38] LABS: Glucose, Whole Blood 272 mg/dL (60-115)
[2021-01-07] MEDS: Insulin Glargine,Hum.rec.anlog 100 UNIT/ML 10 ML VIAL 42 UNIT SUBCUT (22:00)
[2021-01-07] MEDS: Mirtazapine 7.5 MG TABLET PO (22:00)
[2021-01-08] VITALS (9 sets, daily range): BP systolic 111–118; BP diastolic 56–68; PULSE 61–72; RESP 16–20; TEMP 36.1–36.8; O2SAT 95–97
[2021-01-08] MEDS: Omeprazole 40 MG CAPSULE.DR PO (05:44)
[2021-01-08 07:14] LABS: Glucose, Whole Blood 147 mg/dL (60-115)
[2021-01-08] MEDS: nadoloL 20 MG TABLET PO (07:47)
[2021-01-08] MEDS: Levothyroxine Sodium 50 MCG TABLET PO (07:48)
[2021-01-08] MEDS: Spironolactone 25 MG TABLET 50 MG PO (07:48)
[2021-01-08] MEDS: Lactulose 20 GM/30 ML SOLUTION PO ×3 (07:48→21:53)
[2021-01-08] MEDS: 0.9 % Sodium Chloride Flush 3 ML SYRINGE IVFLUSH ×2 (07:49→16:36)
[2021-01-08] MEDS: Hydrocortisone 2.5 % Rectal Cr 30 GM TUBE 1 APPL PR (07:52)
[2021-01-08 10:01] LABS: Basophils Percent Auto 1.2 % (0-2); Eosinophils Absolute Auto 0.1 X10*3/uL (0.0-0.4); Eosinophils Percent Auto 3.5 % (0-4); Hematocrit 33.2 % (37-47); Hemoglobin 11.2 g/dl (12.0-16.0); Imm Gran Abs Auto 0.01 X10*3/uL (0.00-0.03); Imm Gran Pct Auto 0.4 % (0.0-0.4); Lymphocytes Absolute Auto 0.6 X10*3/uL (1.2-4.9); Lymphocytes Percent Auto 21.5 % (20-40); MANUAL DIFF FLAG SCAN; Mean Corpuscular HGB Conc 33.7 g/dl (31.0-35.0); Mean Corpuscular Hemoglobin 32.9 pg (27.0-33.0); Mean Corpuscular Volume 97.6 fL (80-98); Monocytes Absolute Auto 0.3 X10*3/uL (0.1-1.2); Monocytes Percent Auto 9.6 % (2-11); Neutrophils Absolute Auto 1.7 X10*3/uL (2.0-8.3); Neutrophils Percent Auto 63.8 % (45-73); Red Cell Distribution Width 14.7 % (11.0-16.0); SCAN SMEAR FLAG 1; White Blood Count 2.6 X10*3/uL (4.8-10.8)
[2021-01-08 10:39] LABS: Platelet Count 29 X10*3/uL (160-400)
[2021-01-08 10:40] LABS: SLIDE REVIEW VERIFIED
[2021-01-08 11:05] LABS: Glucose, Whole Blood 215 mg/dL (60-115)
[2021-01-08] MEDS: Insulin Lispro 100 UNIT/ML 3 ML VIAL SUBCUT ×3 (12:31→21:53)
--- NOTE | 2021-01-08 14:03 | P.PNIM_ITS ---
Subjective Subjective Date of Service: 01/08/21 Interval History: f/u for confusion secondary to hepatic encephalopathy, hemorrhoidal bleeding 2 bowel movements, 1 with small amount of blood No complaints at this time Review of Systems Review of Systems: Yes all other systems are reviewed and are negative Constitutional Constitutional: Denies chills and Denies fever(s) Cardiovascular Cardiovascular: Denies chest pain Respiratory Respiratory: Denies cough Gastrointestinal Gastrointestinal: Denies abdominal pain Physical Exam Vital Signs: Vital Signs: Last Vital Signs Temp 97 F 01/08/21 11:25 Pulse 69 01/08/21 11:25 Resp 17 01/08/21 11:25 BP 118/68 01/08/21 11:25 Pulse Ox 97 01/08/21 11:25 Body Mass Index 29.0 Const: General: lethargic Orientation/consciousness: lethargic Neck: Neck: Yes normal visual inspection Chest: Chest palpation & inspection: normal inspection of the chest Resp: Effort & Inspection: normal respiratory effort Cardio: Jugular venous distension: no JVD GI: Inspection: Yes normal to inspection Skin: General skin exam: no rashes or lesions noted Neuro: Motor exam (neuro): 5/5 motor strength present throughout Objective Data Current Medications Generic Name Dose Route Start Last Admin Trade Name Freq PRN Reason Stop Dose Admin Hydrocortisone 1 appl 01/07/21 13:45 01/08/21 07:52 Hydrocortisone 2.5 % Rectal Cr 30 Gm Tube NE 1 appl DAILY [facility] Administration Insulin Glargine 42 unit 01/06/21 21:00 01/07/21 22:00 Insulin Glargine,Hum.Rec.Anlog 100 Unit/Ml 10 Ml Vial SUBCUT 42 unit BEDTIME [facility] Administration Insulin Human Lispro 0 unit 01/06/21 21:00 01/08/21 12:31 Insulin Lispro 100 Unit/Ml 3 Ml Vial SUBCUT 4 unit QIDACHS [facility] Administration Protocol Lactulose 20 gm 01/06/21 13:08 01/08/21 07:48 Lactulose 20 Gm/30 Ml Solution PO 20 gm QID [facility] Administration Levothyroxine Sodium 50 mcg 01/07/21 09:00 01/08/21 07:48 Levothyroxine Sodium 50 Mcg Tablet PO 50 mcg DAILY [facility] Administration Mirtazapine 7.5 mg 01/06/21 21:00 01/07/21 22:00 Mirtazapine 7.5 Mg Tablet PO 7.5 mg BEDTIME [facility] Administration Nadolol 20 mg 01/07/21 09:00 01/08/21 07:47 Nadolol 20 Mg Tablet PO 20 mg DAILY [facility] Administration Protocol Omeprazole 40 mg 01/07/21 06:30 01/08/21 05:44 Omeprazole 40 Mg Capsule. PO 40 mg DAILY@0630 [facility] Administration Pharmacy Consult 1 each 01/06/21 04:11 Consult Rx Perform Med Rec MISCELLANE ONCE PRN Consult order Sodium Chloride 3 ml 01/06/21 16:00 01/08/21 07:49 0.9 % Sodium Chloride Flush 3 Ml Syringe IVFLUSH 3 ml QSHIFT [facility] Administration Spironolactone 50 mg 01/07/21 09:00 01/08/21 07:48 Spironolactone 25 Mg Tablet PO 50 mg DAILY [facility] Administration Protocol Labs CBC & Chem 7: 01/08/21 09:38 01/07/21 05:20 Microbiology Microbiology Results: Microbiology 01/06/21 04:39 Urine Catheterized - Romeo Catheter Urine Culture - Pr eliminary Escherichia coli 01/06/21 05:18 Blood - Venous Blood Culture - Preliminary No growth after 48 hours. 01/06/21 05:18 Blood - Venous Blood Culture - Preliminary No growth after 48 hours. Assessment and Plan (1) Acute hepatic encephalopathy: Status: Acute (2) Hemorrhoids: Status: Acute (3) Pancytopenia: Status: Acute (4) Chronic kidney disease, stage 3 unspecified: Status: Acute Assessment and Plan: 55-year-old female with history of cirrhosis secondary to HCV, esophageal varices, portal hypertension, diabetes, hypothyroidism, [place]'s disease presented with weakness and confusion found to have elevated ammonia, lower GI bleed UTI UCx growing e.coli, follow final sensitivities Start IV ceftriaxone No evidence of sepsis, TCP r/t liver dz not sepsis Hepatic encephalopathy. Resolved Ammonia improved from 65 to 37 Previously on Rifaximin, does not appear to be taking currently, unclear reason. Not on lactulose at baseline continue lactulose lower GI bleed likely secondary to hemorrhoid h/o chronic bleeding r/t hemorrhoids H&H stable continue anusol suppository Liver Cirrhosis In the setting of chronic Hepatitis C h/o esophageal varices s/p banding Not a transplant candidate due to history of [place]'s disease continue nadolol and Aldactone hypothyroidism continue levothyroxine Diabetes mellitus continue Lantus and sliding scale insulin tulicity NF monitor blood glucose pancytopenia secondary to underlying liver disease thrombocytopenia s/p transfusion 1U platelet 10 monitor CBC DVT prophylaxis Venodyne given significant thrombocytopenia
[2021-01-08 15:59] LABS: Glucose, Whole Blood 262 mg/dL (60-115)
[2021-01-08] MEDS: cefTRIAXone sodium 1 GM in 0.9 % Sodium Chloride 50 ML IV (16:29)
[2021-01-08 20:12] LABS: Glucose, Whole Blood 251 mg/dL (60-115)
[2021-01-08] MEDS: Mirtazapine 7.5 MG TABLET PO (21:52)
[2021-01-08] MEDS: Insulin Glargine,Hum.rec.anlog 100 UNIT/ML 10 ML VIAL 42 UNIT SUBCUT (21:54)
[2021-01-09] MEDS: 0.9 % Sodium Chloride Flush 3 ML SYRINGE IVFLUSH ×2 (00:56→08:53)
[2021-01-09] MEDS: Omeprazole 40 MG CAPSULE.DR PO (06:02)
[2021-01-09 07:39] VITALS: BP 106/65; PULSE 65; RESP 18; TEMP 36.9; O2SAT 99
[2021-01-09 07:52] LABS: Glucose, Whole Blood 174 mg/dL (60-115)
[2021-01-09] MEDS: Hydrocortisone 2.5 % Rectal Cr 30 GM TUBE 1 APPL PR (08:50)
[2021-01-09 08:53] VITALS: BP 106/65; PULSE 65
[2021-01-09] MEDS: Spironolactone 25 MG TABLET 50 MG PO (08:53)
[2021-01-09 08:54] VITALS: BP 106/65; PULSE 65
[2021-01-09] MEDS: nadoloL 20 MG TABLET PO (08:54)
[2021-01-09] MEDS: Lactulose 20 GM/30 ML SOLUTION PO ×2 (08:54→12:18)
[2021-01-09] MEDS: Insulin Lispro 100 UNIT/ML 3 ML VIAL SUBCUT ×2 (09:01→12:11)
[2021-01-09] MEDS: Levothyroxine Sodium 50 MCG TABLET PO (09:08)
--- NOTE | 2021-01-09 11:02 | MHC.CM.PN ---
Per ROUNDS discussion, Patient is not yet medically cleared for dc (Patient started on IV Ertapenem and needs ID consult). Home with VNA is the goal and CM will follow for possible need to adjust the dc plan.
[2021-01-09 11:32] LABS: Glucose, Whole Blood 326 mg/dL (60-115)
--- NOTE | 2021-01-09 12:01 | PC.NURSE ---
POC 326 at 11am. Currently on a low sodium diet. notified dr Dean and suggested to change to diabetic. no new orders at this time.
--- NOTE | 2021-01-09 12:15 | P.PNIM_ITS ---
Subjective Subjective Date of Service: 01/09/21 Physical Exam Vital Signs: Vital Signs: Last Vital Signs Temp 98.4 F 01/09/21 07:39 Pulse 65 01/09/21 08:54 Resp 18 01/09/21 07:39 BP 106/65 01/09/21 08:54 Pulse Ox 99 01/09/21 07:39 Body Mass Index 29.0 Objective Data Current Medications Generic Name Dose Route Start Last Admin Trade Name Freq PRN Reason Stop Dose Admin Hydrocortisone 1 appl 01/07/21 13:45 01/09/21 08:50 Hydrocortisone 2.5 % Rectal Cr 30 Gm Tube [place] 1 appl DAILY [facility] Administration Insulin Glargine 42 unit 01/06/21 21:00 01/08/21 21:54 Insulin Glargine,Hum.Rec.Anlog 100 Unit/Ml 10 Ml Vial SUBCUT 42 unit BEDTIME [facility] Administration Insulin Human Lispro 0 unit 01/06/21 21:00 01/09/21 12:11 Insulin Lispro 100 Unit/Ml 3 Ml Vial SUBCUT 8 unit QIDACHS [facility] Administration Protocol Lactulose 20 gm 01/06/21 13:08 01/09/21 08:54 Lactulose 20 Gm/30 Ml Solution PO 20 gm QID [facility] Administration Levothyroxine Sodium 50 mcg 01/07/21 09:00 01/09/21 09:08 Levothyroxine Sodium 50 Mcg Tablet PO 50 mcg DAILY [facility] Administration Mirtazapine 7.5 mg 01/06/21 21:00 01/08/21 21:52 Mirtazapine 7.5 Mg Tablet PO 7.5 mg BEDTIME [facility] Administration Nadolol 20 mg 01/07/21 09:00 01/09/21 08:54 Nadolol 20 Mg Tablet PO 20 mg DAILY [facility] Administration Protocol Omeprazole 40 mg 01/07/21 06:30 01/09/21 06:02 Omeprazole 40 Mg Capsule. PO 40 mg DAILY@0630 [facility] Administration Pharmacy Consult 1 each 01/06/21 04:11 Consult Rx Perform Med Rec MISCELLANE ONCE PRN Consult order Sodium Chloride 3 ml 01/06/21 16:00 01/09/21 08:53 0.9 % Sodium Chloride Flush 3 Ml Syringe IVFLUSH 3 ml QSHIFT [facility] Administration Spironolactone 50 mg 01/07/21 09:00 01/09/21 08:53 Spironolactone 25 Mg Tablet PO 50 mg DAILY [facility] Administration Protocol Labs CBC & Chem 7: 01/08/21 09:38 01/07/21 05:20 Microbiology Microbiology Results: Microbiology 01/06/21 04:39 Urine Catheterized - Romeo Catheter Urine Culture - Final Escherichia coli 01/06/21 05:18 Blood - Venous Blood Culture - Preliminary No growth after 48 hours. 01/06/21 05:18 Blood - Venous Blood Culture - Preliminary No growth after 48 hours.
--- NOTE | 2021-01-09 13:51 | P.DS_ITS ---
DS: Providers Provider Date of Service: 01/09/21 Date of admission: 01/06/21 10:03 Primary care physician: [facility] Consults: 01/09/21 09:42 Consult to Infectious Diseases Routine Consulting Provider: Belen Cohen Reason for consultation: uti esbl pos Has provider been notified: No 01/09/21 09:43 Consult to Infectious Diseases Routine Consulting Provider: Belen Cohen Reason for consultation: esbl pos e.coli Has provider been notified: No 01/09/21 11:09 Consult to Infectious Diseases Routine Consulting Provider: Adriana Dean Reason for consultation: restricted antibiotic Has provider been notified: Yes DS: Diagnosis Discharge Diagnosis (1) Acute hepatic encephalopathy: Status: Acute (2) Hemorrhoids: Status: Acute (3) Pancytopenia: Status: Acute (4) Chronic kidney disease, stage 3 unspecified: Status: Acute DS: Medications Discharge Medications Home Medications: Home Medications Medication Instructions Recorded Confirmed cholecalciferol (vitamin D3) 50 2,000 unit PO DAILY cap 08/18/20 01/06/21 mcg (2,000 unit) capsule levothyroxine 50 mcg tablet 50 mcg PO DAILY 08/18/20 01/06/21 mirtazapine 7.5 mg tablet 7.5 mg PO BEDTIME 08/18/20 01/06/21 nadolol 20 mg tablet 20 mg PO DAILY tab 08/18/20 01/06/21 omeprazole 40 mg capsule,delayed 40 mg PO DAILY 08/18/20 01/06/21 release spironolactone 50 mg tablet 50 mg PO DAILY 08/18/20 01/06/21 trazodone 150 mg tablet 150 mg PO BEDTIME PRN 08/18/20 01/06/21 insulin glargine 100 unit/mL (3 42 unit SUBCUT QPM ml 09/29/20 01/06/21 mL) subcutaneous pen Previous Rx's Medication Instructions Recorded dulaglutide 0.75 mg/0.5 mL 0.75 mg SUBCUT QWEEK 28 Days #2 ml 09/29/20 subcutaneous pen injector insulin lispro 100 unit/mL See Rx Instructions SUBCUT QID #15 09/29/20 subcutaneous pen ml lactulose 20 g PO BID #60 ml 01/09/21 nitrofurantoin monohyd/m-cryst 100 mg PO Q12H 7 Days #14 cap 01/09/21 [Macrobid] DS: Summary Hospital Course Hospital Course: History of presenting illness Date of Service: 01/06/21 Chief Complaint: lower gi bleed patient is a poor historian 55 y o f with known h/o cirrhosis presented lower GI bleed patient reported she was having bleeding from her hemorrhoids, patient was also found to be confused, , patient was reporting weakness Denies any fever chills, in the ER found to have ammonia level was high, leukopenia and thrombocytopenia, inpatient admission was requested for hepatic encephalopathy 55-year-old female with history of cirrhosis secondary to HCV, esophageal varices, portal hypertension, diabetes, hypothyroidism, Gallatin's disease presented with weakness and confusion found to have elevated ammonia, lower GI bleed UTI UCx grew E coli ESBL positive patient asymptomatic case discussed with Dr. Cohen she recommend Macrobid twice daily for 7 days,No evidence of sepsis. Hepatic encephalopathy. Resolved, Ammonia improved from 65 to 37 Previously on Rifaximin, does not appear to be taking currently, recommend to discuss with PCP, will resume lactulos. lower GI bleed likely secondary to hemorrhoid, since h/o chronic bleeding r/t hemorrhoids, hematocrit stable, no further active GI bleed noted, recommend unless all suppository as needed Liver Cirrhosis In the setting of chronic Hepatitis C,h/o esophageal varices s/p banding,Not a transplant candidate due to history of Gallatin's disease continue nadolol and Aldactone hypothyroidism continue levothyroxine Diabetes mellitus continue Lantus and tulicity, follow diabetic diet pancytopenia secondary to underlying liver disease, thrombocytopenia s/p transfusion 1U platelet , repeat platelet remains low but stable. Time Spent with Patient Time attestation: Total time spent providing and/or coordinating discharge services: Discharge coordination time: Greater than 30 minutes Physical Exam Vital Signs: Vital Signs: Last Vital Signs Temp 98.4 F 01/09/21 07:39 Pulse 65 01/09/21 08:54 Resp 18 01/09/21 07:39 BP 106/65 01/09/21 08:54 Pulse Ox 99 01/09/21 07:39 Body Mass Index 29.0 General no acute distress. Neck is supple no JVD. CVS regular rate rhythm, Respiratory lungs clear to auscultation, no respiratory distress, no wheeze, no rhonchi. Gastrointestinal abdomen soft, distended, bowel sounds audible, no guarding , no rigidity. Extremities no edema. Neuro speech clear, no abnormal movement noted. Skin no rash DS: Data Data Completed and Pending Labs on day of discharge: Laboratory Results - last 24 hr 01/08/21 01/08/21 01/09/21 15:55 20:08 07:46 POC Glucose 262 H 251 H 174 H 01/09/21 11:27 POC Glucose 326 H Preliminary micro results at discharge 01/06/21 05:18 Blood Culture - Preliminary Blood - Venous No growth after 48 hours. 01/06/21 05:18 Blood Culture - Preliminary Blood - Venous No growth after 48 hours. Discharge Plan Discharge Patient Disposition: Home, Self-Care Referrals: Rina Ko MD [Physician] - Discharge Medications: New lactulose 20 gram/30 mL Solution 20 g PO BID Qty: 60 RF: 0 nitrofurantoin monohyd/m-cryst [Macrobid] 100 mg capsule 100 mg PO Q12H 7 Days Qty: 14 RF: 0 Continued cholecalciferol (vitamin D3) 50 mcg (2,000 unit) capsule 2,000 unit PO DAILY RF: 0 omeprazole 40 mg capsule,delayed release(DR/EC) 40 mg PO DAILY RF: 0 spironolactone 50 mg tablet 50 mg PO DAILY RF: 0 mirtazapine 7.5 mg tablet 7.5 mg PO BEDTIME RF: 0 levothyroxine 50 mcg tablet 50 mcg PO DAILY RF: 0 nadolol 20 mg tablet 20 mg PO DAILY RF: 0 trazodone 150 mg tablet 150 mg PO BEDTIME PRN (Reason: Insomnia) RF: 0 Lantus Solostar U-100 Insulin 100 unit/mL (3 mL) insulin pen 42 unit subcut QPM RF: 0 Trulicity 0.75 mg/0.5 mL pen injector 0.75 mg subcut QWEEK 28 Days Qty: 2 RF: 3 insulin lispro [Humalog KwikPen Insulin] 100 unit/mL insulin pen See Rx Instructions subcut QID Qty: 15 RF: 3 Discharge Orders: Discharge Order (Routine); Ordered 01/09/21 Ordered By: Adriana Dean Diet: diabetic diet Activity on Discharge: As tolerated Stand Alone Forms: Patient Portal Discharge page Care Plan Goals: Take all medications as prescribed Health Concerns: UTI/hemorrhoidal bleed Plan of Treatment: Follow-up with primary care physician
--- NOTE | 2021-01-09 13:57 | MHC.CM.PN ---
Patient has been medically cleared for dc to home today, no services.
--- NOTE | 2021-01-09 15:34 | W.PM.IDCN ---
History of Present Illness Data of Consult Service Date: 01/09/21 Primary Care Provider: [facility] HPI Reason for consult: encephalopathy,?UTI She presents to ER with rectal discomfort She had bleeding from hemorrhoids and trouble wiping herself per note due to weakness She was admitted and evaluated for hepatic encephalopathy She has no dysuria,hematuria,flank pain or fever Review of Systems Review of Systems: Yes all other systems are reviewed and are negative [facility] Past Medical History Medical History (Updated 01/09/21 @ 15:40 by Belen Cohen MD) Allergic rhinitis Anemia Asthma Chronic kidney disease, stage 3 unspecified Cirrhosis Depression due to dementia Diabetes type 2, uncontrolled Esophageal varices Essential hypertension Facial twitching GERD (gastroesophageal reflux disease) Heart murmur Hemorrhoids Hepatitis C [place] disease Hx of hypotension Hx of spontaneous bacterial peritonitis Hyperlipidemia LDL goal <100 Hypothyroidism (acquired) Intellectual disability Lower extremity edema Other ascites Pancytopenia Portal hypertension Recurrent pleural effusion on right Thrombocytopenia Type 2 diabetes mellitus with chronic kidney disease UTI due to extended-spectrum beta lactamase (ESBL) producing Escherichia coli Venous insufficiency Vitamin D deficiency Family History Family History Father No problems noted. Mother No problems noted. Family history: reviewed and not pertinent Surgical History Surgical History Hx of esophageal varices Social History Social History Household Members: Significant Other Housing: House Do you presently have visiting nurse or other home services: Yes Alcohol intake: unknown Smoking Status: Former smoker Smoked in Last 30 Days: No Use of substances other than those prescribed or required for medical reasons: No Currently Displaying Signs/Symptoms of Drug Intoxication Withdrawal: No Have you been hit, kicked, punched, or otherwise hurt by someone within the past year? If so, by whom?: No Do you feel safe in your current relationship?: Yes Is there a partner from a previous relationship who is making you feel unsafe now?: No Advance Directives: No Do you have thoughts of harming others: None Do you have a plan to hurt others: No Plan Recently lost weight without trying: No service: No Current occupational status: disabled Meds Allergies Allergy/AdvReac Type Severity Reaction Status Date / Time aspirin [ASPIRIN] Allergy Unknown NAUSEA/VOMI Verified 01/05/21 23:19 TING ibuprofen [IBUPROFEN] AdvReac Mild N/V Verified 01/05/21 23:19 povidone-iodine AdvReac Unknown RASH Verified 01/05/21 23:19 [Povidone-Iodine] Codeine Phosphate Allergy Unknown unknown Uncoded 09/29/20 14:48 Active Medications: Current Medications Generic Name Dose Route Start Last Admin Trade Name Freq PRN Reason Stop Dose Admin Hydrocortisone 1 appl 01/07/21 13:45 01/09/21 08:50 Hydrocortisone 2.5 % Rectal Cr 30 Gm Tube HI 1 appl DAILY PREMA Administration Insulin Glargine 42 unit 01/06/21 21:00 01/08/21 21:54 Insulin Glargine,Hum.Rec.Anlog 100 Unit/Ml 10 Ml Vial SUBCUT 42 unit BEDTIME PREMA Administration Insulin Human Lispro 0 unit 01/06/21 21:00 01/09/21 12:11 Insulin Lispro 100 Unit/Ml 3 Ml Vial SUBCUT 8 unit QIDACHS [facility] Administration Protocol Lactulose 20 gm 01/06/21 13:08 01/09/21 12:18 Lactulose 20 Gm/30 Ml Solution PO 20 gm QID PREMA Administration Levothyroxine Sodium 50 mcg 01/07/21 09:00 01/09/21 09:08 Levothyroxine Sodium 50 Mcg Tablet PO 50 mcg DAILY PREMA Administration Mirtazapine 7.5 mg 01/06/21 21:00 01/08/21 21:52 Mirtazapine 7.5 Mg Tablet PO 7.5 mg BEDTIME PREMA Administration Nadolol 20 mg 01/07/21 09:00 01/09/21 08:54 Nadolol 20 Mg Tablet PO 20 mg DAILY PREMA Administration Protocol Omeprazole 40 mg 01/07/21 06:30 01/09/21 06:02 Omeprazole 40 Mg Capsule. PO 40 mg DAILY@0630 [facility] Administration Pharmacy Consult 1 each 01/06/21 04:11 Consult Rx Perform Med Rec MISCELLANE ONCE PRN Consult order Sodium Chloride 3 ml 01/06/21 16:00 01/09/21 08:53 0.9 % Sodium Chloride Flush 3 Ml Syringe IVFLUSH 3 ml QSHIFT PREMA Administration Spironolactone 50 mg 01/07/21 09:00 01/09/21 08:53 Spironolactone 25 Mg Tablet PO 50 mg DAILY PREMA Administration Protocol Home Medications Medication Instructions Recorded Confirmed Last Taken Type cholecalciferol (vitamin D3) 50 2,000 unit PO DAILY cap 08/18/20 01/06/21 Unknown History mcg (2,000 unit) capsule levothyroxine 50 mcg tablet 50 mcg PO DAILY 08/18/20 01/06/21 Unknown History mirtazapine 7.5 mg tablet 7.5 mg PO BEDTIME 08/18/20 01/06/21 Unknown History nadolol 20 mg tablet 20 mg PO DAILY tab 08/18/20 01/06/21 Unknown History omeprazole 40 mg capsule,delayed 40 mg PO DAILY 08/18/20 01/06/21 Unknown History release spironolactone 50 mg tablet 50 mg PO DAILY 08/18/20 01/06/21 Unknown History trazodone 150 mg tablet 150 mg PO BEDTIME PRN 08/18/20 01/06/21 Unknown History insulin glargine 100 unit/mL (3 42 unit SUBCUT QPM ml 09/29/20 01/06/21 Unknown History mL) subcutaneous pen Physical Exam Vital Signs: Vital Signs: Last Vital Signs Temp 98.4 F 01/09/21 07:39 Pulse 65 01/09/21 08:54 Resp 18 01/09/21 07:39 BP 106/65 01/09/21 08:54 Pulse Ox 99 01/09/21 07:39 Body Mass Index 29.0 Const: General: cooperative Orientation/consciousness: patient oriented x3 HENMT: Head: Yes normal to inspection Mouth: Normal oral and palatal mucosa present Eyes: General: appearance normal, both eyes and all related structures Resp: Effort & Inspection: normal respiratory effort Cardio: Rate: regular rate Rhythm: regular rhythm GI: Palpation (GI): Soft to palpation and nontender : General: Yes no CVA tenderness Back/Spine/Pelvis: Back: no CVA tenderness Skin: General skin exam: no rashes or lesions noted Neuro: General: patient oriented x3 Extrem: General: Yes normal to inspection Results Labs CBC & Chem 7: 01/08/21 09:38 01/07/21 05:20 Microbiology Microbiology Results: Microbiology 01/06/21 04:39 Urine Catheterized - Romeo Catheter Urine Culture - Final Escherichia coli 01/06/21 05:18 Blood - Venous Blood Culture - Preliminary No growth after 48 hours. 01/06/21 05:18 Blood - Venous Blood Culture - Preliminary No growth after 48 hours. Assessment and Plan (1) UTI due to extended-spectrum beta lactamase (ESBL) producing Escherichia coli: Problem details: She has no dysuria,hematuria,fever or leukocytosis or flank pain She has no UTI symptoms and although there is high colony count there is no sepsis and no high WBC count ESBL likely colonizer No antibiotic allergies Status: Acute Would give Macrobid 100 mg po bid for 10 days
== END 2021-01-09 16:25 | disposition home or self-care (01) | DRG 279 ==
LOC: HO.ED 01-06 04:15 → HO.EDOVER 01-06 10:13 → HO.IMC 01-06 11:03
PROVIDERS: Admitting Provider Internal Medicine; Emergency Provider Emergency Medicine; PCP Family Medicine; Visit Provider Hospitalist
DX: K72.00 Acute and subacute hepatic failure without coma (principal); D61.818 Other pancytopenia; E11.22 Type 2 diabetes mellitus with diabetic chronic kidney disease; K74.60 Unspecified cirrhosis of liver; N18.30 Chronic kidney disease, stage 3 unspecified; K64.9 Unspecified hemorrhoids; Z20.822 Contact with and (suspected) exposure to COVID-19; E03.9 Hypothyroidism, unspecified; Z79.4 Long term (current) use of insulin; N39.0 Urinary tract infection, site not specified; Z16.12 Extended spectrum beta lactamase (ESBL) resistance; B96.20 Unspecified Escherichia coli [E. coli] as the cause of diseases classified elsewhere; I12.9 Hypertensive chronic kidney disease with stage 1 through stage 4 chronic kidney disease, or unspecified chronic kidney disease; Z88.5 Allergy status to narcotic agent; Z88.6 Allergy status to analgesic agent; Z79.890 Hormone replacement therapy; Z79.899 Other long term (current) drug therapy
CPT/HCPCS: 36415; 70450; 71045; 80048; 80076; 81001; 81003; 82140; 82947; 83605; 83690; 83735; 85025; 85027; 85060; 85610; 85730; 86850; 86900; 87040; 87086; 87088; 87186; 87635; 93005; 96365; 97161; 99285; J0696; J2185; P9035

== ENCOUNTER → 2021-01-21 11:49 | Outpatient (BNVA) | payer MEDICAID, SELFPAY | PROVIDERS: PCP Family Medicine; Visit Provider Nurse Practitioner Gerontology ==

== ENCOUNTER 2021-01-26 15:55 | Outpatient (REF) | payer MEDICAID, SELFPAY ==
[2021-01-26 18:01] LABS: Estimated Average Glucose 183 mg/dL
[2021-01-26 18:05] LABS: Alanine Aminotransferase 25 U/L (0-31); Alkaline Phosphatase 62 U/L (39-117); Anion Gap 10 (12-20); Aspartate Amino Transferase 19 U/L (5-31); Bilirubin Total 1.8 mg/dL (0.0-1.0); Blood Urea Nitrogen 17 mg/dL (9-16); Calcium 8.7 mg/dL (8.4-10.2); Carbon Dioxide 25 mmol/L (22-29); Chloride 110 mmol/L (96-108); Cholesterol 145 mg/dL; Estimated Glomerular Filt Rate 55; Glucose Random 156 mg/dL (60-115); HDL Cholesterol 41 mg/dL; LDL Cholesterol Calculated 90 mg/dl; Sodium 141 mmol/L (135-145); Total Protein 5.6 g/dL (6.5-8.0); Triglycerides 73 mg/dL
[2021-01-30 07:02] LABS: Fructosamine 435 umol/L (205-285)
== END 2021-01-26 15:56 | disposition home or self-care (01) ==
LOC: HO.LAB 15:55
PROVIDERS: PCP Family Medicine; Visit Provider Nurse Practitioner Gerontology
DX: E11.22 Type 2 diabetes mellitus with diabetic chronic kidney disease (principal); N18.9 Chronic kidney disease, unspecified
CPT/HCPCS: 36415; 80053; 80061; 82985; 83036

== ENCOUNTER 2021-01-27 10:52 | Outpatient (REF) | payer MEDICAID, SELFPAY ==
[2021-01-27 12:12] LABS: Creatinine Urine 55.99 mg/dL; Microalbumin Urine < 5.0 mg/L
== END 2021-01-27 10:53 | disposition home or self-care (01) ==
LOC: HO.LNP 10:52
PROVIDERS: Visit Provider Nurse Practitioner Gerontology
DX: E11.22 Type 2 diabetes mellitus with diabetic chronic kidney disease (principal); N18.9 Chronic kidney disease, unspecified
CPT/HCPCS: 82043

== ENCOUNTER → 2021-03-05 13:54 | Outpatient (BNVA) | payer MEDICAID, SELFPAY | PROVIDERS: PCP Family Medicine; Visit Provider Nurse Practitioner Gerontology | DX: E11.22 Type 2 diabetes mellitus with diabetic chronic kidney disease (principal); E11.65 Type 2 diabetes mellitus with hyperglycemia; E78.5 Hyperlipidemia, unspecified; I10 Essential (primary) hypertension; G10 Huntington's disease; N18.9 Chronic kidney disease, unspecified; Z88.4 Allergy status to anesthetic agent; Z88.5 Allergy status to narcotic agent; Z88.8 Allergy status to other drugs, medicaments and biological substances; Z87.891 Personal history of nicotine dependence; Z79.4 Long term (current) use of insulin; Z79.899 Other long term (current) drug therapy | CPT/HCPCS: 82947; 99212 ==

== ENCOUNTER 2021-04-02 12:17 | Outpatient (REF) | payer MEDICAID, SELFPAY ==
[2021-04-02 12:59] LABS: Basophils Percent Auto 1.5 % (0-2); Eosinophils Absolute Auto 0.2 X10*3/uL (0.0-0.4); Eosinophils Percent Auto 6.6 % (0-4); Hematocrit 29.3 % (37-47); Hemoglobin 9.9 g/dl (12.0-16.0); Imm Gran Abs Auto 0.01 X10*3/uL (0.00-0.03); Imm Gran Pct Auto 0.4 % (0.0-0.4); Lymphocytes Absolute Auto 0.7 X10*3/uL (1.2-4.9); Lymphocytes Percent Auto 25.3 % (20-40); MANUAL DIFF FLAG SCAN; Mean Corpuscular HGB Conc 33.8 g/dl (31.0-35.0); Mean Corpuscular Hemoglobin 32.2 pg (27.0-33.0); Mean Corpuscular Volume 95.4 fL (80-98); Mean Platelet Volume 11.1 fL (9.4-12.3); Monocytes Absolute Auto 0.2 X10*3/uL (0.1-1.2); Monocytes Percent Auto 8.4 % (2-11); Neutrophils Absolute Auto 1.6 X10*3/uL (2.0-8.3); Neutrophils Percent Auto 57.8 % (45-73); Red Blood Count 3.07 X10*6/uL (4.20-5.50); Red Cell Distribution Width 15.6 % (11.0-16.0); SCAN SMEAR FLAG 1; White Blood Count 2.7 X10*3/uL (4.8-10.8)
[2021-04-02 13:04] LABS: INTERNATIONAL NORM RATIO 1.3 (0.9-1.1); Prothrombin Time 15.7 SEC (10.8-13.0)
[2021-04-02 13:24] LABS: Platelet Count 43 X10*3/uL (160-400)
[2021-04-02 13:29] LABS: Alanine Aminotransferase 25 U/L (0-31); Alkaline Phosphatase 53 U/L (39-117); Ammonia 123 umol/L (13-55); Anion Gap 11 (12-20); Aspartate Amino Transferase 23 U/L (5-31); Bilirubin Direct 0.6 mg/dL (0.0-0.5); Bilirubin Total 1.4 mg/dL (0.0-1.0); Blood Urea Nitrogen 21 mg/dL (9-16); Calcium 8.9 mg/dL (8.4-10.2); Carbon Dioxide 27 mmol/L (22-29); Chloride 105 mmol/L (96-108); Estimated Glomerular Filt Rate 43; Glucose Random 183 mg/dL (60-115); Potassium 4.3 mmol/L (3.3-5.1); Sodium 139 mmol/L (135-145); Total Protein 5.7 g/dL (6.5-8.0)
[2021-04-02 13:38] LABS: SLIDE REVIEW VERIFIED
[2021-04-02 13:49] LABS: TSH reflex Free T4 1.82 uIU/mL (0.32-4.0)
== END 2021-04-02 12:18 | disposition home or self-care (01) ==
LOC: HO.LAB 12:17
PROVIDERS: PCP Family Medicine; Visit Provider Family Medicine
DX: D61.818 Other pancytopenia (principal); E03.9 Hypothyroidism, unspecified; E11.8 Type 2 diabetes mellitus with unspecified complications; E72.20 Disorder of urea cycle metabolism, unspecified; K76.6 Portal hypertension
CPT/HCPCS: 36415; 80048; 80076; 82140; 84443; 85025; 85610

== ENCOUNTER → 2021-11-09 13:36 | Outpatient (BNVA) | payer MEDICAID, SELFPAY | PROVIDERS: PCP Family Medicine; Visit Provider Nurse Practitioner Gerontology | DX: E11.22 Type 2 diabetes mellitus with diabetic chronic kidney disease (principal); I12.9 Hypertensive chronic kidney disease with stage 1 through stage 4 chronic kidney disease, or unspecified chronic kidney disease; N18.9 Chronic kidney disease, unspecified; E11.65 Type 2 diabetes mellitus with hyperglycemia; E78.5 Hyperlipidemia, unspecified | CPT/HCPCS: 82947; 83036; 99212 ==

== ENCOUNTER → 2022-02-08 14:06 | Outpatient (BNVA) | payer MEDICAID, SELFPAY | PROVIDERS: PCP Family Medicine; Visit Provider Registered Nurse Diabetes Educator | DX: Z46.81 Encounter for fitting and adjustment of insulin pump (principal) | CPT/HCPCS: 95250 ==

== ENCOUNTER → 2022-02-22 13:42 | Outpatient (BNVA) | payer MEDICAID, SELFPAY | PROVIDERS: PCP Family Medicine; Visit Provider Nurse Practitioner Gerontology | DX: E11.22 Type 2 diabetes mellitus with diabetic chronic kidney disease (principal) ==

== ENCOUNTER → 2024-07-10 10:33 | Outpatient (RCR) | payer MEDICAID, SELFPAY ==
[2021-03-03 16:00] VITALS: BP 113/74; PULSE 74; RESP 12; TEMP 37.1; O2SAT 99; BMI 25.0
--- NOTE | 2021-03-03 16:24 | PM.HEMONCPN ---
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 August 2019 she was admitted for severe anemia, transfused 2 units PRBC and 1 unit platelets. Admitted to [facility] 05/28/2019 for GI bleeding, felt to be related to hemorrhoids, varices and decompensated liver cirrhosis. She was given vitamin K and 1 dose of platelets. CBC on 05/28/2019 showed WBC of 2.2, hemoglobin 9.3, platelets 28 K. Interval History Interval history: Patient is here accompanied by her significant other. She is a poor historian but according to her boyfriend, she was hospitalized again at [facility] which she received blood and platelet transfusion. She is noncompliant with her medications, her ammonia level frequently goes up which causes her to get admitted to the hospital. At this time she denies any rectal bleeding which is her most common symptom when her platelets go too low. She denies any epistaxis, chest pain, shortness of breath, fever or chills. Review of Systems - Constitutional Reports as per HPI, Reports no additional constitutional complaints [facility] Medical History: Medical History (Last Reviewed 03/03/21 @ 16:01 by Isabell Srivastava) Allergic rhinitis Anemia Asthma Chronic kidney disease, stage 3 unspecified Cirrhosis Depression due to dementia Diabetes type 2, uncontrolled Esophageal varices Essential hypertension Facial twitching GERD (gastroesophageal reflux disease) Heart murmur Hemorrhoids Hemorrhoids Hepatitis C [place] disease Hx of hypotension Hx of spontaneous bacterial peritonitis Hyperlipidemia LDL goal <100 Hypothyroidism (acquired) Intellectual disability Lower extremity edema Other ascites Pancytopenia Pancytopenia Portal hypertension Recurrent pleural effusion on right Thrombocytopenia Type 2 diabetes mellitus with chronic kidney disease UTI due to extended-spectrum beta lactamase (ESBL) producing Escherichia coli Venous insufficiency Vitamin D deficiency Family History: Family History (Last Reviewed 01/09/21 @ 15:36 by Belen Cohen MD) Father No problems noted. Mother No problems noted. Surgical History: Surgical History (Last Reviewed 03/03/21 @ 16:01 by Isabell Srivastava) Hx of esophageal varices Social History: Social History (Last Reviewed 03/03/21 @ 16:01 by Isabell Srivastava) Living Situation History: Household Members: Significant Other Household Members Other:: Mehrdad Andrade Housing: House Do you presently have visiting nurse or other home services: Yes Alcohol History: Alcohol intake: unknown Tobacco History: Smoking Status: Former smoker Occupation Assessmet: service: No Current occupational status: disabled Smoking status: Former smoker Home Medications and Allergies Home Medications Medication Instructions Recorded Confirmed Type cholecalciferol (vitamin D3) 50 2,000 unit PO DAILY cap 08/18/20 03/03/21 History mcg (2,000 unit) capsule levothyroxine 50 mcg tablet 50 mcg PO DAILY 08/18/20 03/03/21 History mirtazapine 7.5 mg tablet 7.5 mg PO BEDTIME 08/18/20 03/03/21 History nadolol 20 mg tablet 20 mg PO DAILY tab 08/18/20 03/03/21 History omeprazole 40 mg capsule,delayed 40 mg PO DAILY 08/18/20 03/03/21 History release spironolactone 50 mg tablet 50 mg PO DAILY 08/18/20 03/03/21 History trazodone 150 mg tablet 150 mg PO BEDTIME PRN 08/18/20 03/03/21 History insulin glargine 100 unit/mL (3 42 unit SUBCUT QPM ml 09/29/20 03/03/21 History mL) subcutaneous pen furosemide 1 tab PO DAILY 03/03/21 03/03/21 History gabapentin 100 mg PO BID 03/03/21 03/03/21 History melatonin 3 mg PO BEDTIME PRN 03/03/21 03/03/21 History rifaximin [Xifaxan] 1 tab PO BID 03/03/21 03/03/21 History Allergies Allergy/AdvReac Type Severity Reaction Status Date / Time aspirin [ASPIRIN] Allergy Unknown NAUSEA/VOMI Verified 01/05/21 23:19 TING ibuprofen [IBUPROFEN] AdvReac Mild N/V Verified 01/05/21 23:19 povidone-iodine AdvReac Unknown RASH Verified 01/05/21 23:19 [Povidone-Iodine] Codeine Phosphate Allergy Unknown unknown Uncoded 09/29/20 14:48 Exam Vital signs: Vital Signs Temp 98.8 F 03/03/21 16:00 Pulse 74 03/03/21 16:00 Resp 12 03/03/21 16:00 BP 113/74 03/03/21 16:00 Pulse Ox 99 03/03/21 16:00 Intake & Output 03/02/21 03/03/21 03/03/21 18:59 06:59 18:59 Other: Weight 65.2 kg [place] Weight in Grams [id number] Weight 65.2 kg Body Mass Index 25.0 - Constitutional Present: no acute distress, chronically ill appearing - Routine HEENT Exam Eye: Present: EOMI, PERRL - Routine Neck Exam Present: normal inspection - Routine Respiratory Exam Present: CTAB. Absent: accessory muscle use - Routine Cardiovascular Exam Cardiovascular: Present: S1, S2 - Routine Abdominal Exam Present: distended - Routine Skin Exam Present: intact Data - Labs CBC & Chem 7: 03/03/21 16:45 Progress Note: A/P (1) Pancytopenia Status: Chronic Assessment and plan: 1. This is a 55-year-old lady, with past medical history of hypertension, pancytopenia, hepatitis C, liver cirrhosis, esophageal varices, gastrointestinal bleed, history of hemorrhoids. Pancytopenia: Likely related to Hypersplenism from underlying liver cirrhosis. Chronic hemolysis which is also related to hepatitis C and liver cirrhosis. Her blood counts are stable, moderate thrombocytopenia. No signs of bleeding. She was recently at [facility] and has received both blood and platelet transfusion. Her numbers today are quite good for her. Follow-up in 1 month. - Time Spent With Patient Total time spent is greater than 50% in coordination of care (as documented) at patient's floor/unit and/or counseling patient: 15 - 24 minutes
--- NOTE | 2021-03-03 16:33 | MHC.HEMONC ---
Pt here for follow up with Dr Perez. Doing well. Blood draw done, will call pt in AM if pt needs transfusion.
[2021-03-03 16:54] LABS: Basophils Percent Auto 1.1 % (0-2); Eosinophils Absolute Auto 0.2 X10*3/uL (0.0-0.4); Eosinophils Percent Auto 5.7 % (0-4); Hematocrit 31.9 % (37-47); Hemoglobin 10.4 g/dl (12.0-16.0); Imm Gran Abs Auto 0.01 X10*3/uL (0.00-0.03); Imm Gran Pct Auto 0.4 % (0.0-0.4); Lymphocytes Absolute Auto 0.4 X10*3/uL (1.2-4.9); MANUAL DIFF FLAG SCAN; Mean Corpuscular HGB Conc 32.6 g/dl (31.0-35.0); Mean Corpuscular Hemoglobin 31.6 pg (27.0-33.0); Mean Platelet Volume 11.3 fL (9.4-12.3); Monocytes Absolute Auto 0.2 X10*3/uL (0.1-1.2); Monocytes Percent Auto 5.7 % (2-11); Neutrophils Absolute Auto 1.9 X10*3/uL (2.0-8.3); Neutrophils Percent Auto 71.1 % (45-73); Red Blood Count 3.29 X10*6/uL (4.20-5.50); Red Cell Distribution Width 14.7 % (11.0-16.0); SCAN SMEAR FLAG 1; White Blood Count 2.6 X10*3/uL (4.8-10.8)
[2021-03-03 16:59] LABS: Platelet Count 31 X10*3/uL (160-400)
[2021-03-03 17:24] LABS: SLIDE REVIEW VERIFIED
[2021-04-06 15:45] VITALS: BP 91/52; PULSE 65; RESP 18; TEMP 36.3; O2SAT 97
[2021-04-06 15:53] VITALS: BP 103/55; BMI 24.2
--- NOTE | 2021-04-06 16:05 | P.PNHO_ITS ---
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 August 2019 she was admitted for severe anemia, transfused 2 units PRBC and 1 unit platelets. Admitted to [facility] 05/28/2019 for GI bleeding, felt to be related to hemorrhoids, varices and decompensated liver cirrhosis. She was given vitamin K and 1 dose of platelets. CBC on 05/28/2019 showed WBC of 2.2, hemoglobin 9.3, platelets 28 K. Interval History Interval history: patient is here in follow-up. She is doing okay, unfortunately continues to have rectal bleeding from her hemorrhoids. She does not recall when her last transfusion was but she thinks it is at least 2 months ago. She had blood work last week. She did not require any blood or platelet transfusion. She denies any chest pain or shortness of breath. She reports chronic fatigue. No recent fever or chills. Review of Systems - Constitutional Reports as per HPI, Reports no additional constitutional complaints [facility] Medical History: Medical History (Last Reviewed 04/06/21 @ 15:52 by Diana Aranda, USMMER) Allergic rhinitis Anemia Asthma Chronic kidney disease, stage 3 unspecified Cirrhosis Depression due to dementia Diabetes type 2, uncontrolled Esophageal varices Essential hypertension Facial twitching GERD (gastroesophageal reflux disease) Heart murmur Hemorrhoids Hemorrhoids Hepatitis C Ballard disease Hx of hypotension Hx of spontaneous bacterial peritonitis Hyperlipidemia LDL goal <100 Hypothyroidism (acquired) Intellectual disability Lower extremity edema Other ascites Pancytopenia Pancytopenia Portal hypertension Recurrent pleural effusion on right Thrombocytopenia Type 2 diabetes mellitus with chronic kidney disease UTI due to extended-spectrum beta lactamase (ESBL) producing Escherichia coli Venous insufficiency Vitamin D deficiency Family History: Family History (Last Reviewed 01/09/21 @ 15:36 by Belen Cohen MD) Father No problems noted. Mother No problems noted. Surgical History: Surgical History (Last Reviewed 04/06/21 @ 15:53 by Diana Aranda, RN) Hx of colonoscopy Hx of esophageal varices Hx of mammogram Social History: Social History (Last Reviewed 03/03/21 @ 16:01 by Isabell Srivastava) Living Situation History: Household Members: Significant Other Household Members Other:: Mehrdad Andrade Housing: House Do you presently have visiting nurse or other home services: Yes Alcohol History: Alcohol intake: unknown Occupation Assessmet: service: No Current occupational status: disabled Home Medications and Allergies Home Medications Medication Instructions Recorded Confirmed Type cholecalciferol (vitamin D3) 50 2,000 unit PO DAILY cap 08/18/20 04/06/21 History mcg (2,000 unit) capsule levothyroxine 50 mcg tablet 50 mcg PO DAILY 08/18/20 04/06/21 History mirtazapine 7.5 mg tablet 7.5 mg PO BEDTIME 08/18/20 04/06/21 History omeprazole 40 mg capsule,delayed 40 mg PO DAILY 08/18/20 04/06/21 History release trazodone 150 mg tablet 150 mg PO BEDTIME PRN 08/18/20 04/06/21 History insulin glargine 100 unit/mL (3 42 unit SUBCUT QPM ml 09/29/20 04/06/21 History mL) subcutaneous pen furosemide 1 tab PO DAILY 03/03/21 04/06/21 History melatonin 3 mg PO BEDTIME PRN 03/03/21 04/06/21 History rifaximin [Xifaxan] 1 tab PO BID 03/03/21 04/06/21 History gabapentin 100 mg capsule 100 mg PO ONCE cap 03/05/21 04/06/21 History Allergies Allergy/AdvReac Type Severity Reaction Status Date / Time aspirin [ASPIRIN] Allergy Unknown NAUSEA/VOMI Verified 03/05/21 14:25 TING ibuprofen [IBUPROFEN] AdvReac Mild N/V Verified 03/05/21 14:25 povidone-iodine AdvReac Unknown RASH Verified 03/05/21 14:25 [Povidone-Iodine] Codeine Phosphate Allergy Unknown unknown Uncoded 03/05/21 14:25 Exam Vital signs: Vital Signs Temp 97.4 F 04/06/21 15:45 Pulse 65 04/06/21 15:45 Resp 18 04/06/21 15:45 BP 103/55 L 04/06/21 15:53 Pulse Ox 97 04/06/21 15:45 Intake & Output 04/05/21 04/06/21 04/06/21 18:59 06:59 18:59 Other: Weight 63.1 kg Weight in Grams [id number] Weight 63.1 kg Body Mass Index 24.2 - Constitutional Present: no acute distress, chronically ill appearing - Routine Neck Exam Present: normal inspection - Routine Respiratory Exam Present: CTAB. Absent: accessory muscle use - Routine Cardiovascular Exam Cardiovascular: Present: S1, S2 - Routine Abdominal Exam Present: distended - Routine Extremities Exam Present: pedal edema - Routine Skin Exam Present: intact Data - Labs CBC & Chem 7: 03/03/21 16:45 Labs: 03/03/21 16:45 Complete Blood Count Auto Diff Routine SLIDE REVIEW Routine Laboratory Last Values WBC 2.6 X10*3/uL (4.8-10.8) L 03/03/21 16:45 RBC 3.29 X10*6/uL (4.20-5.50) L 03/03/21 16:45 Hgb 10.4 g/dl (12.0-16.0) L 03/03/21 16:45 Hct 31.9 % (37-47) L 03/03/21 16:45 MCV 97.0 fL (80-98) 03/03/21 16:45 MCH 31.6 pg (27.0-33.0) 03/03/21 16:45 MCHC 32.6 g/dl (31.0-35.0) 03/03/21 16:45 RDW 14.7 % (11.0-16.0) 03/03/21 16:45 Plt Count 31 X10*3/uL (160-400) L 03/03/21 16:45 MPV 11.3 fL (9.4-12.3) 03/03/21 16:45 Immature Gran % (Auto) 0.4 % (0.0-0.4) 03/03/21 16:45 Neut % (Auto) 71.1 % (45-73) 03/03/21 16:45 Lymph % (Auto) 16.0 % (20-40) L 03/03/21 16:45 [place] % (Auto) 5.7 % (2-11) 03/03/21 16:45 Eos % (Auto) 5.7 % (0-4) H 03/03/21 16:45 Baso % (Auto) 1.1 % (0-2) 03/03/21 16:45 Lymph # (Auto) 0.4 X10*3/uL (1.2-4.9) L 03/03/21 16:45 [place] # (Auto) 0.2 X10*3/uL (0.1-1.2) 03/03/21 16:45 Eos # (Auto) 0.2 X10*3/uL (0.0-0.4) 03/03/21 16:45 Baso # (Auto) 0.0 X10*3/uL (0.0-0.2) 03/03/21 16:45 Abs Immat Gran (auto) 0.01 X10*3/uL (0.00-0.03) 03/03/21 16:45 Absolute Neuts (auto) 1.9 X10*3/uL (2.0-8.3) L 03/03/21 16:45 Absolute Nucleated RBC 0.000 X10*3/uL (0.0-0.012) 03/03/21 16:45 Nucleated RBC % (auto) 0.0 /100WBC (0.0-0.2) 03/03/21 16:45 Smear Tech's Comments VERIFIED 03/03/21 16:45 Progress Note: A/P (1) Pancytopenia Status: Chronic Assessment and plan: 1. This is a 55-year-old lady, with past medical history of hypertension, pancytopenia, hepatitis C, liver cirrhosis, esophageal varices, gastrointestinal bleed, history of hemorrhoids. Pancytopenia: Likely related to Hypersplenism from underlying liver cirrhosis. Chronic hemolysis which is also related to hepatitis C and liver cirrhosis. Her blood counts are stable, moderate thrombocytopenia. Blood work from April 02 shows platelets of 42 K with hemoglobin around 9 gram/dL. Follow-up for blood work in 2 weeks. - Time Spent With Patient Total time spent is greater than 50% in coordination of care (as documented) at patient's floor/unit and/or counseling patient: 15 - 24 minutes
--- NOTE | 2021-07-13 15:36 | P.PNHO_ITS ---
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 August 2019 she was admitted for severe anemia, transfused 2 units PRBC and 1 unit platelets. Admitted to [facility] 05/28/2019 for GI bleeding, felt to be related to h emorrhoids, varices and decompensated liver cirrhosis. She was given vitamin K and 1 dose of platelets. CBC on 05/28/2019 showed WBC of 2.2, hemoglobin 9.3, platelets 28 K. Interval History Interval history: patient is here in follow-up. She is now in senior care/rehabilitation center. She was noncompliant with lactulose and was getting disoriented every few days because of high ammonia levels. Her rectal bleeding has subsided significantly. She denies any chest pain or shortness of breath. She reports chronic fatigue. No recent fever or chills. Review of Systems - Constitutional Reports as per HPI, Reports fatigue, Denies fever(s), Denies malaise, Denies night sweats - Cardiovascular Reports no additional cardiovascular complaints - Respiratory Reports no additional respiratory complaints - Gastrointestinal Reports no additional gastrointestinal complaints [facility] Medical History: Medical History (Last Reviewed 07/13/21 @ 15:40 by Bre Reeder) Allergic rhinitis Anemia Asthma Chronic kidney disease, stage 3 unspecified Cirrhosis Depression due to dementia Diabetes type 2, uncontrolled Esophageal varices Essential hypertension Facial twitching GERD (gastroesophageal reflux disease) Heart murmur Hemorrhoids Hemorrhoids Hepatitis C Craig disease Hx of hypotension Hx of spontaneous bacterial peritonitis Hyperlipidemia LDL goal <100 Hypothyroidism (acquired) Intellectual disability Lower extremity edema Other ascites Pancytopenia Pancytopenia Portal hypertension Recurrent pleural effusion on right Thrombocytopenia Type 2 diabetes mellitus with chronic kidney disease UTI due to extended-spectrum beta lactamase (ESBL) producing Escherichia coli Venous insufficiency Vitamin D deficiency Family History: Family History (Last Reviewed 01/09/21 @ 15:36 by Belen Cohen MD) Father No problems noted. Mother No problems noted. Surgical History: Surgical History (Last Reviewed 07/13/21 @ 15:40 by Bre Reeder) Hx of colonoscopy Hx of esophageal varices Hx of mammogram Social History: Social History (Last Reviewed 07/13/21 @ 15:40 by Bre Reeder) Living Situation History: Household Members: Significant Other Household Members Other:: Mehrdad Andrade Housing: House Do you presently have visiting nurse or other home services: Yes Alcohol History: Alcohol intake: unknown Occupation Assessmet: service: No Current occupational status: disabled Oncology Screenings - ECOG Performance Status ECOG Performance Status: 2 Home Medications and Allergies Home Medications Medication Instructions Recorded Confirmed Type cholecalciferol (vitamin D3) 50 2,000 unit PO DAILY cap 08/18/20 07/13/21 History mcg (2,000 unit) capsule levothyroxine 50 mcg tablet 50 mcg PO DAILY 08/18/20 07/13/21 History mirtazapine 7.5 mg tablet 7.5 mg PO BEDTIME 08/18/20 07/13/21 History omeprazole 40 mg capsule,delayed 40 mg PO DAILY 08/18/20 07/13/21 History release trazodone 150 mg tablet 150 mg PO BEDTIME PRN 08/18/20 07/13/21 History insulin glargine 100 unit/mL (3 42 unit SUBCUT QPM ml 09/29/20 07/13/21 History mL) subcutaneous pen (Lantus Solostar U-100 Insulin) furosemide 20 mg tablet 1 tab PO DAILY 03/03/21 07/13/21 History melatonin 3 mg tablet 3 mg PO BEDTIME PRN 03/03/21 07/13/21 History rifaximin 550 mg tablet (Xifaxan) 1 tab PO BID 03/03/21 07/13/21 History gabapentin 100 mg capsule 100 mg PO ONCE cap 03/05/21 07/13/21 History Allergies Allergy/AdvReac Type Severity Reaction Status Date / Time aspirin [ASPIRIN] Allergy Unknown NAUSEA/VOMI Verified 07/13/21 15:40 TING ibuprofen [IBUPROFEN] AdvReac Mild N/V Verified 07/13/21 15:40 povidone-iodine AdvReac Unknown RASH Verified 07/13/21 15:40 [Povidone-Iodine] Codeine Phosphate Allergy Unknown unknown Uncoded 07/13/21 15:40 Exam Vital signs: Vital Signs Temp 97.4 F 04/06/21 15:45 Pulse 65 04/06/21 15:45 Resp 18 04/06/21 15:45 BP 103/55 L 04/06/21 15:53 Pulse Ox 97 04/06/21 15:45 Weight 63.1 kg Body Mass Index 24.2 - Constitutional Present: no acute distress, chronically ill appearing - Routine Neck Exam Present: normal inspection - Routine Respiratory Exam Present: CTAB. Absent: accessory muscle use - Routine Cardiovascular Exam Cardiovascular: Present: S1, S2 - Routine Abdominal Exam Present: distended - Routine Extremities Exam Present: pedal edema - Routine Skin Exam Present: intact Data - Labs CBC & Chem 7: 07/13/21 16:20 Labs: 03/03/21 16:45 Complete Blood Count Auto Diff Routine SLIDE REVIEW Routine Laboratory Last Values WBC 2.6 X10*3/uL (4.8-10.8) L 03/03/21 16:45 RBC 3.29 X10*6/uL (4.20-5.50) L 03/03/21 16:45 Hgb 10.4 g/dl (12.0-16.0) L 03/03/21 16:45 Hct 31.9 % (37-47) L 03/03/21 16:45 MCV 97.0 fL (80-98) 03/03/21 16:45 MCH 31.6 pg (27.0-33.0) 03/03/21 16:45 MCHC 32.6 g/dl (31.0-35.0) 03/03/21 16:45 RDW 14.7 % (11.0-16.0) 03/03/21 16:45 Plt Count 31 X10*3/uL (160-400) L 03/03/21 16:45 MPV 11.3 fL (9.4-12.3) 03/03/21 16:45 Immature Gran % (Auto) 0.4 % (0.0-0.4) 03/03/21 16:45 Neut % (Auto) 71.1 % (45-73) 03/03/21 16:45 Lymph % (Auto) 16.0 % (20-40) L 03/03/21 16:45 [place] % (Auto) 5.7 % (2-11) 03/03/21 16:45 Eos % (Auto) 5.7 % (0-4) H 03/03/21 16:45 Baso % (Auto) 1.1 % (0-2) 03/03/21 16:45 Lymph # (Auto) 0.4 X10*3/uL (1.2-4.9) L 03/03/21 16:45 [place] # (Auto) 0.2 X10*3/uL (0.1-1.2) 03/03/21 16:45 Eos # (Auto) 0.2 X10*3/uL (0.0-0.4) 03/03/21 16:45 Baso # (Auto) 0.0 X10*3/uL (0.0-0.2) 03/03/21 16:45 Abs Immat Gran (auto) 0.01 X10*3/uL (0.00-0.03) 03/03/21 16:45 Absolute Neuts (auto) 1.9 X10*3/uL (2.0-8.3) L 03/03/21 16:45 Absolute Nucleated RBC 0.000 X10*3/uL (0.0-0.012) 03/03/21 16:45 Nucleated RBC % (auto) 0.0 /100WBC (0.0-0.2) 03/03/21 16:45 Smear Tech's Comments VERIFIED 03/03/21 16:45 Assessment and Plan Patient Active problem list reviewed?: Yes (1) Pancytopenia Status: Chronic Assessment and plan: 1. This is a 56-year-old lady, with past medical history of hypertension, pancytopenia, hepatitis C, liver cirrhosis, esophageal varices, gastrointestinal bleed, history of hemorrhoids. Pancytopenia: Likely related to Hypersplenism from underlying liver cirrhosis. Chronic hemolysis which is also related to hepatitis C and liver cirrhosis. Her blood counts are stable, moderate thrombocytopenia. Overall she is doing better since being transferred to a senior care. Follow-up in 2 months. - Time Spent With Patient Time Spent with Patient (in minutes): 15
[2021-07-13 15:37] VITALS: BP 126/65; PULSE 70; RESP 14; TEMP 37.1; O2SAT 96; BMI 23.9
--- NOTE | 2021-07-13 15:58 | MHC.HEMONCMA ---
Patient came in for a follow up, states that she is having pain in her left eye. Clinical summary was reviewed and updated. Patient had labs and will return in 3 months for a follow up.
[2021-07-13 16:43] LABS: Hematocrit 31.5 % (37-47); Hemoglobin 10.3 g/dl (12.0-16.0); Mean Corpuscular HGB Conc 32.7 g/dl (31.0-35.0); Mean Corpuscular Hemoglobin 31.8 pg (27.0-33.0); Mean Corpuscular Volume 97.2 fL (80-98); Mean Platelet Volume 12.2 fL (9.4-12.3); Red Blood Count 3.24 X10*6/uL (4.20-5.50); Red Cell Distribution Width 15.4 % (11.0-16.0)
[2021-07-13 16:51] LABS: Platelet Count 34 X10*3/uL (160-400); White Blood Count 2.4 X10*3/uL (4.8-10.8)
--- NOTE | 2021-09-29 10:56 | MHC.HEMONC ---
Pt's son called. pt currently admitted to [facility]
--- NOTE | 2021-11-25 11:22 | HE.ONCSEC ---
CALLED PATIENT TO RESCHEDULE HER APPT THAT SHE DID NOT SHOW FOR ON 11/24/21 , PATIENT DID NOT ANSWER THE CALL , I LEFT A VOICEMAIL AND WILL TRY AGAIN LATER IN THE DAY .
== END | disposition home or self-care (01) ==
LOC: HO.ONC 02-17 13:49
PROVIDERS: PCP Family Medicine; Visit Provider Internal Medicine
DX: D61.818 Other pancytopenia (principal); K74.60 Unspecified cirrhosis of liver; D73.1 Hypersplenism; I85.10 Secondary esophageal varices without bleeding; B19.20 Unspecified viral hepatitis C without hepatic coma
CPT/HCPCS: 36415; 85025; 85027; 99213